=== PATIENT | female | born 1970 | race Caucasian/White ===

== ENCOUNTER 2019-10-25 14:00 | Outpatient (CLI) | payer OTHER, SELFPAY ==
--- NOTE | ~2019-10-25 | CT_ITS ---
EXAMINATION: CT abdomen pelvis w con EXAM DATE: 10/25/2019 14:49 INDICATION: Left lower quadrant abdominal pain. TECHNIQUE: Spiral CT of the abdomen and pelvis was performed following intravenous injection of 100 m L Omnipaque 350. Axial, coronal and sagittal images were reviewed. The dose-length product (DLP) fo r this examination was 477.59 mGy-cm. The exposure was tailored according to patient size (auto mA e xposure control), and iterative reconstruction (ASIR) was used as additional dose reduction technique . Comparison is made to prior examination from 10/19/2018. FINDINGS: The liver, spleen, adrenal glands and pancreas are unremarkable. Gallbladder is unremarkab le. No biliary obstruction. Portal and splenic veins are patent. Kidneys enhance symmetrically. T here is no hydronephrosis. The uterus is not identified and has likely been surgically resected. Th e ovaries are unremarkable. The bladder is unremarkable. There is no retroperitoneal or pelvic lymp hadenopathy. The appendix is normal. The stomach and small bowel are unremarkable. There is expected amount of c olonic stool. No free intraperitoneal gas. The heart is normal in size. There are no pericardial or pleural effusions. The lung bases are unremarkable. The bones are unremarkable. IMPRESSION: 1. Unremarkable CT abdomen pelvis exam. Reviewed, dictated and finalized at location A.
== END 2019-10-25 14:01 | disposition home or self-care (01) ==
PROVIDERS: PCP Family Medicine; Visit Provider Nurse Practitioner Family
DX: R10.9 Unspecified abdominal pain (principal)
CPT/HCPCS: 74177; Q9967

== ENCOUNTER → 2022-03-31 08:09 | Outpatient (CLI) | payer BC, OTHER, SELFPAY ==
--- NOTE | ~2022-03-31 | MR_ITS ---
EXAMINATION: MR lumbar spine wo con DATE: 03/31/2022 09:02 INDICATION: Lumbar disc protrusion. TECHNIQUE: Magnetic resonance imaging (MRI) of the lumbar spine was performed without intravenous con trast. Sequences included sagittal T2-weighted FSE, sagittal T2-weighted FS FSE, sagittal T1-weighted FSE, and axial T2-weighted FSE. COMPARISON: None FINDINGS: Bone alignment is normal. Vertebral body heights are normal. There is mildly decreased disc height at L3-L4 and moderately decreased disc height at L5-S1. The distal spinal cord signal intensi ty is normal. The conus medullaris is at L2. The following disc levels are specifically discussed: L1-L2: There is a central protrusion. There is mild bilateral facet joint osteoarthritis. There is no neural foraminal stenosis. There is mild central canal stenosis. L2-L3: The disc does not extend beyond the endplate margin. There is mild bilateral facet joint osteo arthritis. There is no neural foraminal stenosis. There is no central canal stenosis. L3-L4: The disc is bulging. There is mild bilateral facet joint osteoarthritis. There is mild left ne ural foraminal stenosis. There is mild central canal stenosis. L4-L5: The disc is bulging. There is moderate right and severe left facet joint osteoarthritis. There is mild bilateral neural foraminal stenosis. There is mild central canal stenosis. L5-S1: The disc is bulging and has an annular fissure. There is moderate right and mild left facet ajith int osteoarthritis. There is moderate bilateral neural foraminal stenosis. There is mild central harika l stenosis. IMPRESSION: 1. Moderate lumbar spondylosis. Reviewed, dictated and finalized at location A. RAMS ASSISTANT
== END ==
PROVIDERS: PCP Family Medicine; Visit Provider Chiropractor
DX: M51.26 Other intervertebral disc displacement, lumbar region (principal); M47.816 Spondylosis without myelopathy or radiculopathy, lumbar region
CPT/HCPCS: 72148

== ENCOUNTER → 2022-10-25 07:14 | Outpatient (CLI) | payer BC, OTHER, SELFPAY ==
--- NOTE | ~2022-10-25 | MMUS_ITS ---
EXAMINATION: MM diagnostic tammi BI w katt, US breast RT complete HISTORY: Right axillary lump for 3 to 4 months TECHNIQUE: ML, MLO and CC 3-D tomosynthesis images of both breasts were performed and synthetic 2-D i mages were generated. CAD analysis was submitted and interpreted. High resolution complete right funmilayo st ultrasound examination including all 4 quadrants and subareolar area and right axillary ultrasound examination were performed. COMPARISON: None BREAST PARENCHYMAL COMPOSITION: There are scattered areas of fibroglandular density. FINDINGS: MAMMOGRAPHIC FINDINGS: There is a circumscribed approximately 3.4 cm right axillary mass. No suspicious mass, architectural distortion, malignant calcification, skin thickening or retraction of either breast is noted otherwise. ULTRASOUND: There is a circumscribed 2.1 x 3.3 x 3.5 cm right axillary hypoechoic solid mass with prominent color flow signal/vascularity and central lucency suggesting necrosis, corresponding to the right axillary mass demonstrated mammographically. The mass is suspicious; ultrasound guided biopsy is recommended . A 0.8 x 1.5 x 1.4 cm benign appearing right axillary lymph node is noted. 8:00 8 cm from nipple: A circumscribed 2.8 x 1.7 x 4.6 mm relatively sonolucent lesion without internal controls specialist al vascularity or posterior shadowing is noted, benign in appearance. 9:00 8.5 cm from nipple: Circumscribed benign-appearing 1.9 x 3.4 x 4.3 mm hypoechoic lesion is noted . No suspicious sonographic mass of the right breast is evident. IMPRESSION: 1. Vascularity or centrally necrotic circumscribed hypoechoic solid right axillary 2.1 x 3.3 x 3.5 cm mass 2. Ultrasound-guided biopsy right axillary mass is recommended BI-RADS category 4, suspicious findings. Dr. Moura telephoned the report and ultrasound-guided biopsy recommendation of the right axillary mass on 10/25/2022 at 1022 hours to Business Management Professor Ann-Marie. Reviewed, dictated and finalized at location A. IMPRESSION: 1. Vascularity or centrally necrotic circumscribed hypoechoic solid right axill nida 2.1 x 3.3 x 3.5 cm mass 2. Ultrasound-guided biopsy right axillary mass is recommended BI-RADS category 4, suspicious findings. Dr. Moura telephoned the report and ultrasound-guided biopsy recommendation of t he right axillary mass on 10/25/2022 at 1022 hours to Business Management Professor June.
== END ==
PROVIDERS: PCP Family Medicine; Visit Provider Student in an Organized Health Care Education/Training Program
DX: N63.10 Unspecified lump in the right breast, unspecified quadrant (principal); R92.8 Other abnormal and inconclusive findings on diagnostic imaging of breast
CPT/HCPCS: 76641; 77062; 77066; G0279

== ENCOUNTER 2022-10-27 15:29 | Outpatient (CLI) | payer BC, OTHER, SELFPAY ==
[2022-10-27 16:10] LABS: Basophils Absolute Auto 0.1 K/mm3 (0.0-0.1); Basophils Percent Auto 1.3 % (0.2-1.2); Eosinophils Absolute Auto 0.2 K/mm3 (0-0.3); Eosinophils Percent Auto 2.5 % (0-4.4); Hematocrit 37.9 % (37.0-47.0); Hemoglobin 12.4 g/dL (12.0-15.0); Immature Granulocyte Absolute 0.02 K/mm3 (0.00-0.031); Immature Granulocyte Percent A 0.3 % (0-0.5); Lymphocytes Absolute Auto 2.17 K/mm3 (0.9-3.2); Lymphocytes Percent Auto 28.1 % (18.3-44.2); Mean Corpuscular HGB Conc 32.7 g/dl (32-36); Mean Corpuscular Hemoglobin 29.5 pg (26-34); Mean Corpuscular Volume 90.2 fl (80-100); Mean Platelet Volume 9.7 fl (7.4-10.4); Monocytes Absolute Auto 0.6 K/mm3 (0.1-0.6); Monocytes Percent Auto 7.5 % (2.6-8.5); Neutrophils Absolute Auto 4.7 K/mm3 (1.3-6.7); Neutrophils Percent Auto 60.3 % (45.5-73.1); Platelet Count Result 335 k/mm3 (150-375); White Blood Count 7.7 K/mm3 (4.5-10.0)
[2022-10-27 16:21] LABS: Alanine Aminotransferase 23 U/L (6-35); Albumin Level 4.1 g/dL (3.5-5.1); Alkaline Phosphatase 63 U/L (38-126); Anion Gap 4 mmol/L (8-16); Aspartate Amino Transferase 23 U/L (14-36); Bilirubin,Total 0.2 mg/dL (0.2-1.3); Blood Urea Nitrogen 13 mg/dL (7-17); Calcium 8.5 mg/dL (8.4-10.2); Carbon Dioxide 30 mmol/L (22-30); Chloride 101 mmol/L (98-107); Estimated Glomerular Filt Rate > 60; Glucose 85 mg/dL (65-110); Potassium 3.9 mmol/L (3.4-5.0); Sodium 135 mmol/L (137-145)
== END 2022-10-27 15:30 | disposition home or self-care (01) ==
LOC: ANHLAB 15:32
PROVIDERS: PCP Family Medicine; Visit Provider Physician Assistant Surgical
DX: R22.31 Localized swelling, mass and lump, right upper limb (principal)
CPT/HCPCS: 36415; 80053; 85025

== ENCOUNTER 2022-10-28 08:05 | Outpatient (CLI) | payer BC, OTHER, SELFPAY ==
--- NOTE | ~2022-10-28 | US_ITS ---
EXAMINATION: US biopsy lymph node DATE: 10/28/2022 09:26 INDICATION: Enlarged right axillary lymph node TECHNIQUE: The procedure including the risks and benefits was discussed with the patient. Risks discu ssed included bleeding and infection. The patient understood the risks and agreed to proceed. The sk in overlying the right axilla was prepped and draped in usual sterile fashion. Anesthetic was admini stered with 1% lidocaine subcutaneously. An 18 gauge core biopsy needle was then advanced into the a lymph node utilizing continuous ultrasound guidance. A core biopsy specimens obtained and placed in formalin. Additional passes were made with a 14-gauge core biopsy needle into the lymph node again wi th continuous ultrasound observation and additional 4 core biopsy specimens were obtained, 3 placed i n a PMI media and one in formalin. Following removal of the biopsy needle the entry site was cleaned and dressed. There were no immediate complications. FINDINGS: Ultrasound images demonstrate biopsy needles advanced through a 3.6 x 3.5 x 2.1 cm right ax illary lymph node. IMPRESSION: 1. Successful CT-guided biopsy of a 3.6 x 3.5 x 2.3 cm right axillary lymph node. Reviewed, dictated and finalized at location A. IMPRESSION: 1. Successful CT-guided biopsy of a 3.6 x 3.5 x 2.3 cm right axillary lymph nod e.
== END 2022-10-28 08:06 | disposition home or self-care (01) ==
PROVIDERS: PCP Family Medicine; Visit Provider Surgery
DX: R22.31 Localized swelling, mass and lump, right upper limb (principal)
CPT/HCPCS: 38505; 76942; 88108; 88184; 88305; 88342; 88360

== ENCOUNTER 2022-11-04 00:48 | Day surgery (SDC) | payer BC, OTHER, SELFPAY ==
[2022-11-02 12:01] VITALS: BMI 27.8
--- NOTE | 2022-11-02 12:08 | PC.NURSE ---
Report to the Outpatient Waiting Room, entrance under the green pavilion located off [facility], at time _0830_ on date _[id number]_. Planned Procedure Time: _1030_. Time changes happen often and if your time is changed the preop area will call you the afternoon before. - You and your visitor will be asked to self-screen and do not enter if you have any COVID symptoms. - A mask is optional within the hospital at this time. Patients may have clear liquids (water, carbonated beverages, clear teas, apple juice) until 3 hours prior to surgery with a maximum of 20 ounces. - No food from midnight until time of surgery Take the following medications with a SIP of water the morning of surgery: ____None DO NOT STOP ANY OF YOUR OTHER PRESCRIPTION MEDICATIONS PRIOR TO SURGERY ?EXCEPT THE FOLLOWING Medications to discontinue per physician None Date to take last dose Please no make-up, nail montserratian, hairspray, perfume, deodorant, or body powder the day of surgery. No jewelry (including any body piercings) or valuables the day of surgery, leave them at home. Please take a shower or bath the night before, or the morning of, surgery with an antibacterial soap. Wear comfortable, loose fitting clothing. - Jewelry must be removed prior to entering the operating room. Rings and piercings that are not removed may be cut off. - The hospital will not accept responsibility for valuables. - Please leave all valuables, including medications, at home the day of surgery. If you are going home after surgery, a licensed crew truck driver must drive you home. - NO public transportation without another adult if you receive anesthesia. - We recommend that an adult stay with you for 24 hours following discharge. - We also recommend that you do not drive, make important decision, drink alcoholic beverages, or take any drugs that were not prescribed by your health care provider for at least 24 hours after your discharge time. Follow any additional instructions given to you from your surgeon. If you or anyone in your household have experienced Covid symptoms in the past week, please notify your surgeon or the nurse liaison at the phone number below for possible testing. Telephone instructions given to __Patient___and asked if any additional questions and then verbalized understanding. Patient advised to call surgeon office or pre surgery nurse liaison [phone] if any additional questions.
[2022-11-04] VITALS (9 sets, daily range): BP systolic 118–129; BP diastolic 64–83; PULSE 51–86; RESP 12–14; TEMP 36.1–36.5; O2SAT 95–100
--- NOTE | 2022-11-04 09:57 | WPDANESEPPF ---
Anes - Initial Pre Proc Eval Procedure: Operation Date: 11/04/22 10:30 Proposed Procedures p Excisional Biopsy Right Axillary Lymph Node - Merly Mcguire MD Date/Time: 11/04/22 09:57 Surgeon: Merly Mcguire MD Pre Op Diagnosis: right axillary mass Patient Data Age: 52 Gender: F Height: 1.57 m Weight: 69 kg Allergies Allergy/AdvReac Type Severity Reaction Status Date / Time tetracycline Allergy Mild Fainting Verified 11/02/22 12:00 Home Medications Medication Instructions Recorded Confirmed Type No Home Medications 11/02/22 11/02/22 History Patient hx anesthesia problems: none Family hx anesthesia problems: none Results Review: All pre-operative results and documents have been reviewed as part of the pre-operative evaluation. [facility] Past Medical History Medical History (Updated 10/26/22 @ 14:11 by Julia Reyes PA-C) BMI greater than 30 Mass of right axilla Screening for breast cancer Surgical History Surgical History H/O: hysterectomy History of bladder repair surgery History of hip surgery Hx of breast reduction, elective Previous back surgery Family History Family History Father Heart disease Hypertension Thyroid cancer Cancer of kidney Skin cancer CHF (congestive heart failure) Mother COPD (chronic obstructive pulmonary disease) Sibling Cancer of kidney Social History Social History (Updated 10/26/22 @ 14:39 by Hannah Mccray [facility]) Smoking packs per day: 1 Smoking cigarettes per day: 20.0 Years smoked: 15 Smoking pack-years: 15.00 Smoking status: Former smoker Smoking end date: 11/02/06 Alcohol intake: current Drinks per week: 3 Substance use: never Lack of Transportation: No Lack of Food: Never True Current Housing: I Have Housing Concerned About Future Housing: No Difficulty Paying Gas/Electric Bills: No Difficulty Paying for Meds: No Currently Unemployed: No Education: Master's Degree or Higher Difficulty w/ Childcare or Family Care: No Living arrangements: with family Occupation/Education: occupation Gender identity (if verbalized by the patient): Female Sexual Orientation (if Verbalized by the Patient): Straight or Heterosexual Spiritual care concerns: No Anes - Eval Final PreProcedure Day of Procedure 11/04/22 09:57 Patient weight: normal Heart: regular rate and rhythm Lungs: clear to auscultation Airway: Mallampati scale class II Neurological: alert and oriented Last oral intake: >/= 8 hours ASA classification: II Emergent: no Anesthetic plan: proceed Anesthesia type and monitoring: general GIVS and LMA and standard monitoring Results Review: All pre-operative results and documents have been reviewed as part of the pre-operative evaluation. Informed Consent: The patient's anesthetic plan and its attendant risks and benefits were discussed with the patient/family/POA. Questions were solicited and answers provided to the satisfaction of the patient/family/POA.
--- NOTE | 2022-11-04 10:04 | WPDHPUPDATE1 ---
History and Physical Update Update Date/Time: 11/04/22 10:04 History and Physical has been reviewed, including an updated exam of the patient. There are NO changes in the patient's condition. Risks, benefits, and alternatives have been discussed and questions answered. Patient agrees to proceed with procedure.
[2022-11-04] MEDS: LACTATED RINGERS 1,000 ML 30 ML IV CONT ×2 (10:15→12:26)
[2022-11-04] MEDS: ACETAMINOPHEN 500 MG TABLET 1000 MG PO (10:15)
[2022-11-04] MEDS: SCOPOLAMINE 1.5 MG PATCH TRANSDERM (10:15)
[2022-11-04] MEDS: ceFAZolin 2 GM/D5W 50 ML 2 GM/50 ML BAG IVPB (10:51)
--- NOTE | 2022-11-04 12:04 | SUR.OPER ---
1200: Specimen excised. Right Axillary Mass Specimen marked per Dr. Mcguire. Sent fresh to lab per Kenia, PCT. 1207: Specimen received in Lab by
[2022-11-04] MEDS: BUPIVACAINE/EPINEPHRINE 0.25% 10 ML VIAL 30 ML INFILTRATE (12:09)
--- NOTE | 2022-11-04 12:13 | P.OP_ITS ---
Procedure Note - Detailed Date of Procedure 11/04/22 Pre-op Diagnosis right axillary mass Post-op Diagnosis Same Procedure Performed Excisional biopsy of right axillary mass Surgeon Merly Mcguire MD [employer] Julia Reyes PA-C Anesthesia General Indications 52-year-old female who presented for evaluation of right axillary mass. Patient had a unremarkable breast mammogram and ultrasound done but it did show a large axillary mass. She had a ultrasound-guided core needle biopsy of this mass that showed atypical vascular lesion, recommended for an excisional biopsy for further diagnosis. Risks of the procedure were discussed with the patient which included but not limited to risk of bleeding, infection, possible need for additional procedures in the future, damage to nearby structures including the long thoracic nerve and the thoracodorsal nerve, positive margins, recurrence, pain, wound healing issues as well as risk of anesthesia. All questions were answered patient agreed to proceed. Description of Procedure Patient was identified in the preoperative holding area brought to the operating room suite. She was laid supine in the operating table and sequential compression devices were applied. The right axillary and chest area were prepped and draped in a sterile fashion. An incision was made overlying the area of the palpable mass and dissection was carried down through the subcutaneous tissue with Bovie electrocautery. The clavipectoral fascia was encounter and opened. The mass was located through palpation incompletely excised from the surrounding tissue in the axilla using LigaSure device. The ma ss was not attached to the underlying muscle and the long thoracic nerve or thoracodorsal nerve were never visualized as there was a layer of adipose tissue between the mass and the chest wall. The mass was oriented using surgical paint according to the manufacture instruction and sent to pathology as a fresh specimen. The cavity was irrigated hemostasis was assured. The clavipectoral fascia was approximated using running 3-0 Vicryl, the deep dermal layer was closed with interrupted 3-0 Vicryl and the skin was then closed with 4-0 Monocryl in a subcuticular fashion. Dermabond was applied followed by sterile dressing and a compression bra. Patient was awoken from anesthesia taken to the recovery area in stable condition. All needles, instruments, and sponge counts were correct as reported by their operating room staff. Patient tolerated the procedure well with no immediate complications. Julia Reyes PA-C, was required for positioning and retraction throughout the case. Estimated Blood Loss 5 Drains No Pathology Yes Complications No immediate complications Condition Stable Disposition PACU [facility] Billing Surgery - Charge Forward: Surgery Billing
[2022-11-04] MEDS: fentaNYL CITRATE INJ (*CRX) 100 MCG/2 ML VIAL 25 MCG IV PUSH ×4 (12:59→13:10)
[2022-11-04] MEDS: ONDANSETRON INJ 4 MG/2 ML VIAL IV PUSH (13:49)
== END 2022-11-04 14:29 | disposition home or self-care (01) ==
PROVIDERS: PCP Family Medicine; Visit Provider Surgery
PROC: (CPT 24071; principal; 2022-11-04 10:30)
DX: R22.31 Localized swelling, mass and lump, right upper limb (principal); Z87.891 Personal history of nicotine dependence
CPT/HCPCS: 24071; 88304; A9270; J0690; J1100; J2250; J2405; J2704; J3010; J7120

== ENCOUNTER 2023-05-02 07:59 | Outpatient (CLI) | payer BC, SELFPAY ==
--- NOTE | 2023-05-02 08:20 | ECG_ITS ---
Measurements Intervals [place] Rate: 55 P: 17 [place]: 169 QRS: 42 QRSD: 101 T: 48 QT: 418 QTc: 400 Interpretive Statements SINUS BRADYCARDIA BORDERLINE ECG NO PREVIOUS ECG AVAILABLE FOR COMPARISON Electronically Signed On 05-02-2023 16:48:22 [employer] by Silvestre Zuleta M.D.
[2023-05-02 08:21] LABS: Hematocrit 39.9 % (37.0-47.0); Hemoglobin 13.2 g/dL (12.0-15.0); Mean Corpuscular HGB Conc 33.1 g/dl (32-36); Mean Corpuscular Hemoglobin 29.3 pg (26-34); Mean Corpuscular Volume 88.5 fl (80-100); Mean Platelet Volume 9.3 fl (7.4-10.4); Platelet Count Result 299 k/mm3 (150-375); Red Blood Count 4.51 M/mm3 (4.2-5.4); Red Cell Distribution Width 12.5 % (11.5-14.5); White Blood Count 6.6 K/mm3 (4.5-10.0)
[2023-05-02 08:30] LABS: Alanine Aminotransferase 17 U/L (6-35); Albumin Level 4.2 g/dL (3.5-5.1); Alkaline Phosphatase 60 U/L (38-126); Anion Gap 4 mmol/L (8-16); Aspartate Amino Transferase 22 U/L (14-36); Bilirubin,Total 0.5 mg/dL (0.2-1.3); Blood Urea Nitrogen 13 mg/dL (7-17); Calcium 9.1 mg/dL (8.4-10.2); Carbon Dioxide 30 mmol/L (22-30); Chloride 102 mmol/L (98-107); Estimated Glomerular Filt Rate > 60; Glucose 96 mg/dL (65-110); Potassium 4.1 mmol/L (3.4-5.0); Sodium 136 mmol/L (137-145)
== END 2023-05-02 08:00 | disposition home or self-care (01) ==
PROVIDERS: PCP Family Medicine; Visit Provider Orthopaedic Surgery
DX: Z01.818 Encounter for other preprocedural examination (principal)
CPT/HCPCS: 36415; 80053; 85027; 93005

== ENCOUNTER 2023-11-17 11:35 | Outpatient (CLI) | payer BC, SELFPAY ==
[2023-11-17 12:23] LABS: Cholesterol 181 mg/dL (0-200); HDL Direct 71 mg/dL; Triglycerides 57 mg/dL (<150)
[2023-11-17 12:33] LABS: LDL Cholesterol Direct 101 mg/dL
[2023-11-17 12:48] LABS: Thyroid Stimulating Hormone 0.637 uIU/mL (0.465-4.680)
== END 2023-11-17 11:36 | disposition home or self-care (01) ==
LOC: ANHLAB 11:36
PROVIDERS: PCP Family Medicine; Visit Provider Nurse Practitioner Family
DX: Z13.29 Encounter for screening for other suspected endocrine disorder (principal); R63.5 Abnormal weight gain; Z13.220 Encounter for screening for lipoid disorders
CPT/HCPCS: 36415; 80061; 84443

== ENCOUNTER 2023-12-15 11:44 | Outpatient (CLI) | payer BC, SELFPAY ==
--- NOTE | ~2023-12-15 | MM_ITS ---
EXAMINATION: MM screening [facility] BI w katt HISTORY: Screening mammogram TECHNIQUE: Craniocaudal and mediolateral oblique 3-D tomosynthesis images were obtained and synthetic 2-D images were generated. CAD analysis was submitted and interpreted. COMPARISON: 10/25/2022, 04/09/2020, 09/27/2018 BREAST PARENCHYMAL COMPOSITION:Not Dense. There are scattered areas of fibroglandular density. FINDINGS: No suspicious mass, calcification, or architectural distortion are identified in either johanna ast to suggest malignancy. There has been no suspicious interval change. IMPRESSION: No mammographic evidence of malignancy. Recommend routine screening mammography in one year. BI-RADS Category 1: Negative Reviewed, dictated and finalized at location .
== END 2023-12-15 11:45 | disposition home or self-care (01) ==
LOC: CHSIMG 11:46
PROVIDERS: PCP Family Medicine; Visit Provider Student in an Organized Health Care Education/Training Program
DX: Z12.31 Encounter for screening mammogram for malignant neoplasm of breast (principal)
CPT/HCPCS: 77063; 77067

== ENCOUNTER 2024-01-19 00:44 | Day surgery (SDC) | payer BC, SELFPAY ==
[2024-01-06 14:53] VITALS: BMI 27.3
[2024-01-19] MEDS: LACTATED RINGERS 1,000 ML 150 ML IV CONT (06:55)
[2024-01-19 06:56] VITALS: BP 110/73; PULSE 70; RESP 16; TEMP 36.4; O2SAT 100
--- NOTE | 2024-01-19 07:12 | P.PNAN_ITS ---
Anes - Initial Pre Proc Eval Procedure: Operation Date: 01/19/24 08:00 Proposed Procedures p Screening Colonoscopy - Anthony Garsia DO Date/Time: 01/19/24 07:12 Surgeon: Anthony Garsia DO Pre Op Diagnosis: Neoplasm screening Patient Data Age: 54 Gender: F Height: 1.57 m Weight: 68 kg Last Vital Signs Temp 36.4 C 01/19/24 06:56 Pulse 70 01/19/24 06:56 Resp 16 01/19/24 06:56 BP 110/73 01/19/24 06:56 Pulse Ox 100 01/19/24 06:56 O2 Del Method Room Air 01/19/24 06:56 Allergies Allergy/AdvReac Type Severity Reaction Status Date / Time tetracycline Allergy Mild Fainting Verified 01/19/24 06:58 Home Medications Medication Instructions Recorded Confirmed Type estradiol 0.01% (0.1 mg/gram) 1 g vaginal 3XW #42.5 grams 11/02/23 01/19/24 Rx vaginal cream omeprazole 20 mg capsule,delayed 20 mg PO DAILY #90 caps 11/17/23 01/19/24 Rx release ibuprofen 800 mg tablet 800 mg PO Q8H PRN Pain 01/06/24 01/19/24 History semaglutide (weight loss) 0.25 0.25 mg subcut WEEKLY 01/06/24 01/19/24 History mg/0.5 mL subcutaneous pen injector (Wegovy) temazepam 7.5 mg capsule (Restoril) 7.5 mg PO QHS PRN sleep #30 caps 01/10/24 01/19/24 Rx Patient hx anesthesia problems: none Family hx anesthesia problems: none Results Review: All pre-operative results and documents have been reviewed as part of the pre- operative evaluation. [facility] Past Medical History Medical History Abdominal pain BMI greater than 30 Bronchitis Gluteal tendinitis of right buttock LLQ pain Mass of right axilla Midline low back pain with left-sided sciatica Screening for breast cancer Screening mammogram for breast cancer Surgical History Surgical History H/O: hysterectomy History of bladder repair surgery History of hip surgery Hx of breast reduction, elective Previous back surgery S/P tendon repair Family History Family History Father Heart disease Hypertension Thyroid cancer Cancer of kidney Skin cancer CHF (congestive heart failure) Mother COPD (chronic obstructive pulmonary disease) Sibling Cancer of kidney Social History Social History Smoking packs per day: 1 Smoking cigarettes per day: 20.0 Years smoked: 15 Smoking pack-years: 15.00 Smoking status: Former smoker Smoking end date: 11/02/06 Alcohol intake: current Drinks per week: 4 Substance use: never Lack of Transportation: No Lack of Food: Never True Current Housing: I Have Housing Concerned About Future Housing: No Difficulty Paying Gas/Electric Bills: No Difficulty Paying for Meds: No Currently Unemployed: No Education: Master's Degree or Higher Difficulty w/ Childcare or Family Care: No Living arrangements: with family Occupation/Education: occupation Gender identity (if verbalized by the patient): Female Sexual Orientation (if Verbalized by the Patient): Straight or Heterosexual Spiritual care concerns: No Anes - Eval Final PreProcedure Day of Procedure 01/19/24 07:12 Patient weight: overweight Heart: regular rate and rhythm Lungs: clear to auscultation Airway: Mallampati scale class II Neurological: alert and oriented Last oral intake: >/= 8 hours ASA classification: II Emergent: no Anesthetic plan: proceed Anesthesia type and monitoring: general GIVS and standard monitoring Results Review: All pre-operative results and documents have been reviewed as part of the pre- operative evaluation. Informed Consent: The patient's anesthetic plan and its attendant risks and benefits were discussed with the patient/family/POA. Questions were solicited and answers provided to the satisfaction of the patient/family/POA.
--- NOTE | 2024-01-19 07:26 | P.HP_ITS ---
H&P: HPI History of Present Illness Date/Time: 01/19/24 07:26 Chief Complaint: Screening for colorectal cancer Narrative: this is a 54-year-old woman who presents for colonoscopy. Her last colonoscopy was greater than 10 years ago. She reports IBS symptoms with mostly constipation and some occasional abdominal pain and cramping. She denies any diarrhea. She has grandparents that have had colon cancer but denies any first- degree relatives. She denies any hematochezia or melena. Review of Systems Review of Systems: All systems reviewed & are unremarkable except as noted in HPI and below Constitutional: Constitutional: Denies chills, Denies fever(s), Denies headach e(s) and Denies weight loss Eyes: Eyes: Denies change in vision ENT: Denies dizziness, Denies headache(s), Denies neck mass and Denies throat swelling Cardiovascular: Cardiovascular: Denies chest pain, Denies lightheadedness and Denies dyspnea Respiratory: Respiratory: Denies cough, Denies dyspnea and Denies wheezing Gastrointestinal: Gastrointestinal: Denies abdominal pain, Denies change in bowel habits, Denies nausea and Denies vomiting Genitourinary: Genitourinary: Denies hematuria and Denies dysuria Musculoskeletal: Musculoskeletal: Reports as per HPI Integumentary/Breasts: Skin/Breast: Reports as per HPI Neurologic: Denies dizziness and Denies headache(s) Allergic/Immunologic: Allergic/Immunologic: Denies throat swelling and Denies wheezing [facility] Past Medical History Medical History Abdominal pain BMI greater than 30 Bronchitis Gluteal tendinitis of right buttock LLQ pain Mass of right axilla Midline low back pain with left-sided sciatica Screening for breast cancer Screening mammogram for breast cancer Surgical History Surgical History H/O: hysterectomy History of bladder repair surgery History of hip surgery Hx of breast reduction, elective Previous back surgery S/P tendon repair Family History Family History Father Heart disease Hypertension Thyroid cancer Cancer of kidney Skin cancer CHF (congestive heart failure) Mother COPD (chronic obstructive pulmonary disease) Sibling Cancer of kidney Social History Social History Smoking packs per day: 1 Smoking cigarettes per day: 20.0 Years smoked: 15 Smoking pack-years: 15.00 Smoking status: Former smoker Smoking end date: 11/02/06 Alcohol intake: current Drinks per week: 4 Substance use: never Lack of Transportation: No Lack of Food: Never True Current Housing: I Have Housing Concerned About Future Housing: No Difficulty Paying Gas/Electric Bills: No Difficulty Paying for Meds: No Currently Unemployed: No Education: Master's Degree or Higher Difficulty w/ Childcare or Family Care: No Living arrangements: with family Occupation/Education: occupation Gender identity (if verbalized by the patient): Female Sexual Orientation (if Verbalized by the Patient): Straight or Heterosexual Spiritual care concerns: No Meds Home Medications and Allergies Home Medications Medication Instructions Recorded Confirmed Type estradiol 0.01% (0.1 mg/gram) 1 g vaginal 3XW #42.5 grams 11/02/23 01/19/24 Rx vaginal cream omeprazole 20 mg capsule,delayed 20 mg PO DAILY #90 caps 11/17/23 01/19/24 Rx release ibuprofen 800 mg tablet 800 mg PO Q8H PRN Pain 01/06/24 01/19/24 History semaglutide (weight loss) 0.25 0.25 mg subcut WEEKLY 01/06/24 01/19/24 History mg/0.5 mL subcutaneous pen injector (Wegovy) temazepam 7.5 mg capsule (Restoril) 7.5 mg PO QHS PRN sleep #30 caps 01/10/24 01/19/24 Rx Allergies Allergy/AdvReac Type Severity Reaction Status Date / Time tetracycline Allergy Mild Fainting Verified 01/19/24 06:58 Vital Signs Vital Signs - 24 hr 01/19/24 06:56 Temperature 97.6 F Pulse Rate 70 Respiratory Rate 16 Blood Pressure 110/73 Pulse Oximetry 100 Oxygen Delivery Room Air Exam Const: General: no acute distress and alert Orientation/consciousness: patient oriented x3 HENMT: Head: normocephalic and atraumatic Ears: hearing grossly normal bilaterally Face/Nose/Sinus: Normal nares present Mouth: Yes Normal oral and palatal mucosa present Eyes: Periorbital: periorbital findings normal Sclera: sclerae normal EOM: EOMs intact bilaterally Neck: Neck: normal visual inspection, no lymphadenopathy and trachea midline Chest: Chest palpation & inspection: normal inspection of the chest Resp: Effort & Inspection: normal respiratory effort Auscultation: clear to auscultation bilaterally Cardio: Jugular venous distension: no JVD Rate: regular rate Rhythm: regular rhythm Heart sounds: S1 normal heart sound present and S2 normal heart sound present Peripheral pulses: Peripheral pulses 2+ throughout GI: Inspection: normal to inspection GI Palp: Yes Soft to palpation, No Tenderness to palpation present (GI), No Guarding due to palpation present (GI) and No Rebound tenderness present Percussion: Yes normal to percussion Auscultation: normal bowel sounds : General: Yes no CVA tenderness Back/Spine/Pelvis: Back: no CVA tenderness Neuro: General: patient oriented x3, no focal motor deficits and CN's II-XI intact bilaterally Cognition (Neuro): normal cognition Speech: normal speech Motor exam (neuro): 5/5 motor strength present throughout Extrem: General: capillary refill normal and no clubbing, cyanosis or edema Assessment and Plan Assessment and plan (1) Screening for colorectal cancer: Code(s): Z12.11 - Encounter for screening for malignant neoplasm of colon; Z12.12 - Encounter for screening for malignant neoplasm of rectum Status: Acute Assessment and Plan: I have recommended colonoscopy. I have discussed the procedure, risks, benefits, and alternatives. Questions were answered. Patient is agreeable to proceed.
[2024-01-19 08:21] VITALS: BP 98/64; PULSE 60; RESP 15; O2SAT 99
[2024-01-19 08:31] VITALS: BP 98/65; PULSE 57; RESP 24; O2SAT 100
[2024-01-19 08:41] VITALS: BP 108/68; PULSE 58; RESP 24; O2SAT 100
== END 2024-01-19 08:52 | disposition home or self-care (01) ==
PROVIDERS: PCP Family Medicine; Visit Provider Surgery
PROC: 0DJD8ZZ Inspection of Lower Intestinal Tract, Via Natural or Artificial Opening Endoscopic (ICD-10-PCS; CPT 45378; principal; 2024-01-19 08:00)
DX: Z12.11 Encounter for screening for malignant neoplasm of colon (principal); K64.8 Other hemorrhoids; K57.30 Diverticulosis of large intestine without perforation or abscess without bleeding; Z79.1 Long term (current) use of non-steroidal anti-inflammatories (NSAID); Z79.85 Long-term (current) use of injectable non-insulin antidiabetic drugs; Z98.890 Other specified postprocedural states; Z98.1 Arthrodesis status; Z87.891 Personal history of nicotine dependence; Z80.8 Family history of malignant neoplasm of other organs or systems; Z80.51 Family history of malignant neoplasm of kidney; Z84.0 Family history of diseases of the skin and subcutaneous tissue; Z82.49 Family history of ischemic heart disease and other diseases of the circulatory system
CPT/HCPCS: 45378; J2003; J2704; J7120

== ENCOUNTER 2024-02-16 07:29 | Outpatient (CLI) | payer BC, SELFPAY ==
--- NOTE | ~2024-02-16 | XR_ITS ---
EXAMINATION: XR hand RT 2V DATE: 02/16/2024 07:53 INDICATION: Pain in unspecified fingers. TECHNIQUE: 2 views of right hand were obtained. COMPARISON: None. FINDINGS: Alignment is normal. No fracture. There is mild osteoarthrosis of first carpometacarpal margareth nt, first metacarpophalangeal joint, first interphalangeal joint, and second, third, and fifth distal interphalangeal joints. IMPRESSION: 1. Mild polyarticular osteoarthritis. Reviewed, dictated and finalized at location A.
== END 2024-02-16 07:30 | disposition home or self-care (01) ==
PROVIDERS: PCP Nurse Practitioner Adult Health; Visit Provider Nurse Practitioner Adult Health
DX: M19.041 Primary osteoarthritis, right hand (principal)
CPT/HCPCS: 73120

== ENCOUNTER 2024-12-28 10:22 | Outpatient (CLI) | payer BC, SELFPAY ==
--- NOTE | ~2024-12-28 | MM_ITS ---
EXAMINATION: MM screening [facility] BI w katt HISTORY: Screening TECHNIQUE: Craniocaudal and mediolateral oblique 3-D tomosynthesis images were obtained and synthetic 2-D images were generated. CAD analysis was submitted and interpreted. COMPARISON: Comparison to multiple prior studies sequentially, with oldest reviewed study dated 09/27/2018. BREAST PARENCHYMAL COMPOSITION: Not dense: There are scattered areas of fibroglandular density. FINDINGS: There is no evidence of suspicious mass, calcification, or architectural distortion to suggest malignancy in either breast. There has been no suspicious interval change. IMPRESSION: 1. No mammographic evidence of malignancy. 2. Recommend routine screening mammography in one year. BI-RADS Category 1: Negative Reviewed, dictated and finalized at location B.
--- OUTSIDE RECORDS SUMMARY | 2024-12-28 10:32 | XMS_ITS | Clinical Summary ---
Author Organization [facility] Address [address] [place] [address] Care Team Providers Care Director Of Recruiting Name Role Phone Unavailable Primary Care Provider Unavailabl e Source Comments [facility],non-owned Affiliates and Associated Physician Practices is amultiple site organization consisting of ambulatory clinics and hospital sitesin [place], [place], [place] and [place]. This disclosure is being madepursuant to the Care Everywhere program and may not contain all information available regarding this patient. Last updated 17.[facility] [employer] Social History Tobacco Use Types Packs/Day Years Used Date Smoking Tobacco: Never Assessed Comments Unknown Sex and Gender Information Value Date Recorded Sex Assigned at Not on file Legal Sex Female 5:30 AM OB/GYN Gender Identity Not on file Sexual Orientation Not on file Plan of Treatment Health Maintenance Due Date Last Done Comments COLOGUARD (AGES 45-75) - COL ON CA SCREENING 1969 COLON MONITORING 1969 COLONOSCOPY - COLON CA SCREENING 1969 CT COLONOGRAPHY - COLON CA SCREENING 1969 Colorectal Cancer Screening 1969 FIT - COLON CA SCREENING 1969 FLEX SIG - COLON CA SCREENING 1969 LIPID TESTING 1969 MAMMOGRAM 1969 HIV SCREENING 01/19/1984 HEPATITIS C SCREENING 01/14/1987 DTAP/TDAP/TD VACCINES (1 - Tdap) 01/19/1988 HEPATITIS B VACCINE (1 of 3 - 19+ 3-dose series) 01/19/1988 PAP SMEAR 1990 PNEUMOCOCCAL VACCINE 50+ (1 of 1 - PCV) 2019 ZOSTER VACCINE (1 of 2) 2019 DEPRESSION SCREENING 03/28/2024 COVID-19 VACCINE (1 - 2023-2 5 season) 2024 INFLUENZA VACCINE (#1) 2024 HIB VACCINE Aged Out No longer eligi ble based on patient's age to complete this topic HPV VACCINE Aged Out No longer eligi ble based on patient's age to complete this topic MENINGOCOCCAL (Group B) VACC INE SHARED DECISION-MAKING Aged Out No longer eligibl e based on patient's age to complete this topic MENINGOCOCCAL GROUPS A/C/Y/W VACCINE Aged Out No longer eligible b ased on patient's age to complete this topic Insurance [facility]
--- OUTSIDE RECORDS SUMMARY | 2024-12-28 10:32 | XMS_ITS | Encounter Summary ---
Author Organization [facility] Address [address] [place] [address] Care Team Providers Care Arborist Climber Name Role Phone Unavailable Primary Care Provider Unavailabl e Encounter Details Date Type Department Care Team (Late st Contact Info) Description 11/05/2022 Lab Requisition [facility] - Pathology Lab [address] [place] [address] Chao Fernández MD [address] [place] [address] Illness, unspecified Social History Tobacco Use Types Packs/Day Years Used Date Smoking Tobacco: Never Assessed Comments Unknown Sex and Gender Information Value Date Recorded Sex Assigned at Not on file 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 Gender Identity Not on file Sexual Orientation Not on file documented as of this encounter Plan of Treatment Not on file documented as of this encounter Procedures Procedure Name Priority Date/Time Associated Diagnosis Comments PATHOLOGY TISSUE Routine 11/04/2022 11:5 7 AM CDT Illness, unspecified documented in this encounter Results * PATHOLOGY TISSUE (11/04/2022 11:57 AM CDT) Case Report Surgical Pathology Report Case: [id number] Authorizing Provider: Chao Fernández MD Collected: 11/04/2022 11:57 AM Ordering Location: [facility] Care Pathology Lab Received: 11/05/2022 04:14 PM Pathologist: Liliana Bergman MD Specimen: Soft Tissue Mass, Right axillary mass 11/08/2022 8:01 AM CDT [facility] PATH[facility] Final Diagnosis Soft tissue mass, right axilla, excision ([id number], 11/04/22): - Vascular transformation of lymph node sinuses, see comment 11/08/2022 8:01 AM [facility] at 0801 CDT Microscopic Description and Comment Sections demonstrate a well circumscribed proliferation of blood-filled, anastomosing vascular channels in a sclerotic background. The endothelial lining shows no cytologic atypia, multilayering or mitotic activity. There is a complete capsule and thin rim of lymph node visible in some tissue sections. The rim of normal lymph node is best seen in blocks A7 and A8. These findings are consistent with vascular transformation of lymph node sinuses and is a benign finding. 11/08/2022 8:01 AM [facility] Clinical History The patient is a 52 year old woman with a right axillary mass. 11/08/2022 8:01 AM [facility] Materials Received Received are 10 slide(s) labeled [id number] along with a copy of the outside pathology report. [place] [address]. All original materials are returned to the referring institution, along with a copy of our final report. 11/08/2022 8:01 AM [facility] Pathologist Location at [facility] 11/08/2022 8:01 AM [facility] Disclaimer The performance characteristics of all immunohistochemical and indirect immunofluorescence stains (if any) cited in this report were determined by the Histopathology Laboratory of [facility]. Some of these tests were developed by our own laboratory and have not been cleared or approved by the US Food and Drug Administration. The FDA does not require this test to go through premarket FDA review. These tests are used for clinical purposes. They should not be regarded as investigational or for research. This laboratory is certified under the Clinical Laboratory Improvement Amendments (CLIA) as qualified to perform high complexity clinical laboratory testing. This case has been personally reviewed and interpreted by the attending (teaching) pathologist. 11/08/2022 8:01 AM [facility] Embedded Images 11/08/2022 8:01 AM [facility] Pathology/Cytolo gy SOFT TISSUE MASS / Unknown 11/04/2022 11:57 AM CDT 11/05/2022 4:14 PM CDT us Chao Fernández MD LAB - PATHOLOGY/CYTOLOGY OR DERABLES Final Result [facility] PATHOLOGY LAB [address] [phone] documented in this encounter Visit Diagnoses Diagnosis Illness, unspecified documented in this encounter
--- OUTSIDE RECORDS SUMMARY | 2024-12-28 10:32 | XMS_ITS | Patient Health Record ---
Author Organization [facility] Address [address] [place], [place] [id number] Care Team Providers Care Assembler Erector Name Role Phone RAMON Reyes Unavailable [phone] Jaya Gibson Unavailable Unavailable Reason For Referral No Information Plan Of Treatment No Information Insurance Providers Payer Name Payer Address Payer Phone Subscriber Number Group Number Insured Name Patient Relationship to Insured Coverage Start Date Coverage End Date [facility] ATTN CLAIMS [address] [place] [address] [id number] COLIN SNEED Self - patient is the insured
--- OUTSIDE RECORDS SUMMARY | 2024-12-28 10:32 | XMS_ITS | Clinical Summary ---
Author Organization [facility] Address [address] [place] [address] Care Team Providers Care Plant Guide Name Role Phone Jaya Gibson MD Primary Care Provider + [phone] Allergies Active Allergy Reactions Criticality Noted Date Comments Tetracycline Other (See comments) Low Reaction: Other Medications diazePAM (VALIUM) 5 mg tablet Take one tablet every 8 hours for 2 days after surgery, then take one tablet every 8 hours as needed for muscle spasms. 8 Active HYDROcodone-carlton taminophen (NORCO) 5-325 mg per tabletIndicatio ns:Pain TAKE 1 TO 2 TABLETS EVERY 4 TO 6 HOURS NEEDED FOR PAIN. 8 Active ondansetron (ZOFRAN) 4 mg tablet Take 1 tablet orally every 6 hours as needed for nasuea 8 Active scopolamine 1 mg over 3 days patch [address] on the skin. 8 Active senna-docusate (PERICOLACE) 8.6-50 mg Take 1 tablet twice a day for constipation while on narcotics 8 Active meloxicam (MOBIC) 7.5 mg tablet Take 1 tablet (7.5 mg total) by mouth 2 (two) times a day. 30 tablet 8 Active Active Problems Problem Noted Date Diagnosed Date Tear of acetabular labrum 02/02/2017 Family History Medical History Relation Name Comments Kidney disease Brother Family histor y of kidney disease - (Added by TW Conv) Arthritis Father Family history of arthritis - (Added by TW Conv) Cancer Father Family history of malignant neoplasm - (Added by TW Conv) Heart disease Father Family history of cardiac disorder - (Added by TW Conv) Kidney disease Father Family histor y of kidney disease - (Added by TW Conv) Cancer Mother Family history of malignant neoplasm - (Added by TW Conv) Lung disease Mother Lung trouble - (Added by TW Conv) Heart disease Other 1 Family history of cardiac disorder - (Added by TW Conv) Scoliosis Other 2 Family history of scoliosis - (Added by TW Conv) Arthritis Other 3 Family history of arthritis - (Added by TW Conv) Cancer Other 4 Family history of malignant neoplasm - (Added by TW Conv) Kidney disease Other 5 Family histor y of kidney disease - (Added by TW Conv) Lung disease Other 6 Lung trouble - (Added by TW Conv) Scoliosis Son Family history of scoliosis - (Added by TW Conv) Relation Name Status Comments Brother Father Mother Other 1 Other 2 Other 3 Other 4 Other 5 Other 6 Son Social History Tobacco Use Types Packs/Day Years Used Date Smoking Tobacco: Former Personal Safety Answer Date Recorded Getting School Help Needed Not on file 03/27 Comments Unknown Sex and Gender Information Value Date Recorded Sex Assigned at Not on file Legal Sex Female 10:46 AM CDT Gender Identity Not on file Sexual Orientation Not on file Obstetrics History Last Filed Vital Signs Vital Sign Reading Time Taken Comments Blood Pressure 122/82 08/06/2016 8:47 AM CDT Pulse 52 08/06/2016 8:47 AM CDT Temperature 36.6 C (97.8 F) 08/06/2016 8:47 AM CDT Respiratory Rate - - Oxygen Saturation 99% 08/06/2016 8:47 AM CDT Inhaled Oxygen Concentration - - Weight 76.7 kg (169 lb) 12/20/2017 9:03 AM CDT Height 157.5 cm (5' 2) 12/20/2017 9:03 AM CDT Body Mass Index 30.91 12/20/2017 9:03 AM CDT Plan of Treatment Health Maintenance Due Date Last Done Comments Breast Cancer Screening-Mammogram 1969 Cervical Cancer Screening 1969 Colon Cancer Screening-Colonoscopy 1969 Depression Screening 1969 Hepatitis C Screening 1969 DTaP/Tdap/Td Vaccine (1 - Tdap) 01/19/1980 Hepatitis B Screening 1987 Regular Well Visit/Exam 18-64 1987 Zoster Vaccine (1 of 2) 2019 Covid-19 Vaccine (3 2024-2 6 season) 2024 06/21/2020, 05/24/2020 Influenza Vaccine (#1) 2024 Pneumococcal vaccine <65 Aged Out No longer eligible based on patient's age to complete this topic Insurance [employer] [facility] OPTIONS PPO [employer] [facility] Care Teams Plant Guide Relationship Specialty Start Date End Date Jaya Gibson MD PCP - General 01/21/17
--- OUTSIDE RECORDS SUMMARY | 2024-12-28 10:32 | XMS_ITS | Encounter Summary ---
Author Organization [facility] Address [address] [place] [address] Care Team Providers Care Edger Saw Operator Name Role Phone Unavailable Primary Care Provider Unavailabl e Encounter Details Date Type Department Care Team (Late st Contact Info) Description 10/29/2022 Lab Requisition [facility] - Pathology Lab [address] [place] [address] Ramirez Francis MD [address] [address] Illness, unspecified Social History Tobacco Use Types Packs/Day Years Used Date Smoking Tobacco: Never Assessed Comments Unknown Sex and Gender Information Value Date Recorded Sex Assigned at Not on file 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 Gender Identity Not on file Sexual Orientation Not on file documented as of this encounter Plan of Treatment Not on file documented as of this encounter Procedures Procedure Name Priority Date/Time Associated Diagnosis Comments PATHOLOGY TISSUE Routine 10/28/2022 9:10 AM CDT Illness, unspecified documented in this encounter Results * PATHOLOGY TISSUE (10/28/2022 9:10 AM CDT) Case Report Surgical Pathology Report Case: [id number] Authorizing Provider: Ramirez Francis MD Collected: 10/28/2022 09:10 AM Ordering Location: [facility] Care Pathology Lab Received: 10/29/2022 02:45 PM Pathologist: Liliana Bergman MD Specimen: Lymph Node Biopsy, right axilla 11/01/2022 11:17 AM CDT [facility] PATH[facility] Final Diagnosis Soft tissue, right axilla, core biopsy (OSC: [id number]; 10/28/2022): - Atypical vascular lesion, see comment 11/01/2022 11:17 AM [facility] PATH[facility] LAB at 1117 CDT Microscopic Description and Comment Sections demonstrate three cores of tissue involved by a proliferation of thin-walled vessels by collagenous and edematous stroma. The vascular channels are highlighted by CD31 and are lined by small, uniform plump endothelial cells. No significant cytologic atypia or mitotic activity is noted and Ki-67 is low (less than 5%). Although the mass was clinically suspected to represent a lymph node, there is no lymphoid tissue or definitive capsule present. The circumscription of the lesion as well as lack of anastomosing vascular channels, multilayering or significant atypia are all reassuring features. However, the lesional size and lack of adjacent tissue in this biopsy specimen to assess for possible microscopic infiltration makes it difficult to definitively exclude a malignant process. Complete excision with a rim of adjacent tissue is recommended for definitive classification. 11/01/2022 11:17 AM [facility] Clinical History The patient is a 52-year-old woman with a centrally necrotic circumscribed hypoechoic solid right axillary mass (3.5 x 3.3 x 2.1 cm). 11/01/2022 11:17 AM [facility] PATH[facility] Materials Received Received are 5 slide(s), and 1 block (A1) labeled [id number] along with a copy of the outside pathology report. The materials originate from [facility], [address] [place] [address]. All original materials are returned to the referring institution, along with a copy of our final report. 11/01/2022 11:17 AM [facility] Pathologist Location at [facility] 11/01/2022 11:17 AM [facility] Disclaimer The performance characteristics of all immunohistochemical and indirect immunofluorescence stains (if any) cited in this report were determined by the Histopathology Laboratory of [facility]. Some of these tests were developed by [...] and interpreted by the attending (teaching) pathologist. 11/01/2022 11:17 AM CDT [facility] PATH[facility] LAB Embedded Images 11/01/2022 11:17 AM CDT [facility] PATH[facility] Pathology/Cytolo gy BIOPSY OF LYMPH NODE / Unknown 10/28/2022 9:10 AM CDT 10/29/2022 2:45 PM CDT us Ramirez Francis MD LAB - PATHOLOGY/CYTOLOGY ORDERAB LES Final Result [facility] [address] [phone] documented in this encounter Visit Diagnoses Diagnosis Illness, unspecified documented in this encounter
--- OUTSIDE RECORDS SUMMARY | 2024-12-28 10:32 | XMS_ITS | Encounter Summary ---
Author Organization [facility] Address [address] [facility] [place] [address] Care Team Providers Care Diesel Inspector Name Role Phone Unavailable Primary Care Provider Unavailabl e Encounter Details Date Type Department Care Team (Late st Contact Info) Description 10/28/2022 Lab Requisition [facility] - Pathology Lab [address] [place] [address] Ramirez Francis MD [address] [address] Localized swelling, mass and lump, right upper limb Social History Tobacco Use Types Packs/Day Years Used Date Smoking Tobacco: Never Assessed Comments Unknown Sex and Gender Information Value Date Recorded Sex Assigned at Not on file 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 Gender Identity Not on file Sexual Orientation Not on file documented as of this encounter Plan of Treatment Not on file documented as of this encounter Procedures Procedure Name Priority Date/Time Associated Diagnosis Comments FLOW CYTOMETRY TISSUE PANEL Routine 10/28/2022 9:10 AM CDT Localized swelling, mass and lump, right upper limb documented in this encounter Results * FLOW CYTOMETRY TISSUE PANEL (10/28/2022 9:10 AM CDT) Case Report Flow Cytometry Case: [id number] Authorizing Provider: Ramirez Francis MD Collected: 10/28/2022 09:10 AM Ordering Location: [facility] Care Pathology Lab Received: 10/28/2022 03:09 PM Pathologist: Asmita Muro MD Specimen: Axillary Lymph Node, RIGHT 10/28/2022 4:26 PM CDT [facility] Final Diagnosis Lymph node, right axilla, flow cytometric immunophenotypic analysis: - Insufficient hematopoietic cells for analysis. - See interpretation. 10/28/2022 4:26 PM [facility] at 1626 CDT Flow Cytometry Interpretation Preliminary characterization of the right axillary lymph node specimen demonstrates too few hematopoietic cells for flow cytometric analysis. A cytospin prepared from the flow cytometry specimen is reviewed for manager quality purposes. Virtually no cells are present. Flow cytometry is not performed. 10/28/2022 4:26 PM [facility] Flow Cytometry Results Too few hematopoietic cells for flow cytometric analysis. 10/28/2022 4:26 PM [facility] Reason for test Localized swelling, mass and lump, right upper limb 10/28/2022 4:26 PM [facility] Client Specimen ID # [id number] 10/28/2022 4:26 PM [facility] Pathologist Location at [facility] 10/28/2022 4:26 PM [facility] Disclaimer Test performed at [facility], [address] [place] [address], [id number]. *The established laboratory minimum viability is 70%. Values below the minimum may result in the failure to find an abnormal population of cells. This test was developed and its performance characteristics determined by the Flow Cytometry Laboratory. It has not been cleared by the [place] Food and Drug Administration (FDA). The FDA has determined that such clearance or approval is not necessary. This test is used for clinical purposes. It should not be regarded as investigational or for research. This laboratory is regulated under the Clinical Laboratory Improvement Amendments of 1998 (CLIA) as a qualified to perform high complexity clinical testing. 10/28/2022 4:26 PM T [facility] PATH[facility] Embedded Images 4:26 PM [facility] Pathology/Cytolo gy AXILLARY LYMPH NODE STRUCTURE / Unknown 10/28/2022 9:10 AM CDT 10/28/2022 3:09 PM CDT Ramirez Francis MD LAB - PATHOLOGY/CYTOLOGY ORDERAB LES Final Result [facility] [address] [place] [address], [facility] [phone] documented in this encounter Visit Diagnoses Diagnosis Localized swelling, mass and lump, right upper limb documented in this encounter
== END 2024-12-28 10:23 | disposition home or self-care (01) ==
PROVIDERS: PCP Nurse Practitioner Adult Health; Visit Provider Student in an Organized Health Care Education/Training Program
DX: Z12.31 Encounter for screening mammogram for malignant neoplasm of breast (principal)
CPT/HCPCS: 77063; 77067

== ENCOUNTER 2025-02-05 14:36 | Outpatient (CLI) | payer BC, SELFPAY ==
--- OUTSIDE RECORDS SUMMARY | 2025-02-04 16:00 | XMS_ITS | Encounter Summary ---
Author Organization [facility] Address [address] [place] [id number] Care Team Providers Care Pilot Boat Deckhand Name Role Phone Jaya Gibson MD Primary Care Provider [phone] Reason for Visit * Reason Comments Other Dizziness - Entered by patientStarted Tuesday and got better but then returned. Lips tingling. Encounter Details Date Type Department Care Team (Late st Contact Info) Description 02/04/2025 4:00 PM PSYCHIATRIC TECH Office Visit [facility] at [address] [address] Aggie Plata PA [address] [place] [address] [address] [place] [address] Dizziness (Primary Dx); Tingling of face Social History Tobacco Use Types Packs/Day Years Used Date Smoking Tobacco: Former Personal Safety Answer Date Recorded Have you ever been in or are you currently in a harmful physical or emotional relationship or is someone making you feel afraid or unsafe? Denies 02/04/2025 Comments Unknown Sex and Gender Information Value Date Recorded Sex Assigned at Not on file Legal Sex Female 10:46 AM CDT Gender Identity Not on file Sexual Orientation Not on file documented as of this encounter Last Filed Vital Signs Vital Sign Reading Time Taken Comments Blood Pressure 129/75 02/04/2025 3:54 PM PSYCHIATRIC TECH Pulse 75 02/04/2025 3:54 PM PSYCHIATRIC TECH Temperature 36.8 C (98.3 F) 02/04/2025 3:54 PM PSYCHIATRIC TECH Respiratory Rate 20 02/04/2025 3:54 PM PSYCHIATRIC TECH Oxygen Saturation 99% 02/04/2025 3:54 PM PSYCHIATRIC TECH Inhaled Oxygen Concentration - - Weight 70 kg (154 lb 6.4 oz) 02/04/2025 3:54 PM PSYCHIATRIC TECH Height - - Body Mass Index 28.24 12/20/2017 9:03 AM CDT documented in this encounter Functional Status documented as of this encounter Progress Notes * Aggie Plata PA - 02/04/2025 4:00 PM CST Images from the original note were not included. Subjective/Objective Patient ID: Mell Dowd is a 55 y.o. female. This patient has verbally consented to recording this visit in order to utilize AI technology in generating this note. Chief Complaint Other (Dizziness - Entered by patient/Started Tuesday and got better but then returned. Lips tingling. ) History of Present Illness Mell Dowd is a 55 year old female who presents with dizziness and facial tingling. Dizziness and altered sensation - Dizziness began on Tuesday morning with a sensation of tiredness and feeling 'out of it'. - Symptoms improved on Tuesday but recurred today with a stuffy nose and new tingling around the lips. - Tingling affects both upper and lower lips. - No fever or prolonged upper respiratory symptoms. Facial muscle weakness and orofacial dysfunction - Facial muscle weakness onset around January 21 or , following Botox injections on January 17. - Difficulty moving jaw and mouth correctly. - Significant anxiety related to inability to control facial muscles. Extremity weakness - Weakness in both hands, especially noticeable when typing. Headache - Intermittent headache throughout the day, onset today. Anxiety and dyspnea - Anxiety related to current symptoms. - Shortness of breath when thinking about symptoms, attributed to anxiety. - Reluctance to visit the hospital due to past stressful experiences. Review of Systems All other systems reviewed and are negative. Physical Exam Physical Exam Constitutional: Appearance: Normal appearance. HENT: Head: Normocephalic and atraumatic. Right Ear: External ear normal. Left Ear: External ear normal. Nose: Nose normal. Mouth/Throat: Pharynx: Oropharynx is clear. Eyes: Pupils: Pupils are equal, round, and reactive to light. Cardiovascular: Rate and Rhythm: Normal rate. Pulmonary: Effort: Pulmonary effort is normal. Musculoskeletal: General: Normal range of motion. Cervical back: Normal range of motion. Skin: General: Skin is warm and dry. Neurological: General: No focal deficit present. Mental Status: She is alert and oriented to person, place, and time. Cranial Nerves: No cranial nerve deficit. Motor: No weakness. Psychiatric: Mood and Affect: Mood normal. Behavior: Behavior normal. Comments: Anxious appearing Vitals: 02/04/25 1554 BP: 129/75 Pulse: 75 Resp: 20 Temp: 36.8 ??C (98.3 ??F) TempSrc: Oral SpO2: 99% Weight: 70 kg (154 lb 6.4 oz) No results found. No past medical history on file. Current Outpatient Medications: diazePAM (VALIUM) 5 mg tablet, Take one tablet every 8 hours for 2 days after surgery, then take one tablet every 8 hours as needed for muscle spasms., Disp: , Rfl: HYDROcodone-acetaminophen (NORCO) 5-325 mg per tablet, TAKE 1 TO 2 TABLETS EVERY 4 TO 6 HOURS NEEDED FOR PAIN., Disp: , Rfl: meloxicam (MOBIC) 7.5 mg tablet, Take 1 tablet (7.5 mg total) by mouth 2 (two) times a day., Disp: 30 tablet, Rfl: 0 ondansetron (ZOFRAN) 4 mg tablet, Take 1 tablet orally every 6 hours as needed for nasuea, Disp: , Rfl: scopolamine 1 mg over 3 days patch 3 day, Place on the skin., Disp: , Rfl: senna-docusate (PERICOLACE) 8.6-50 mg, Take 1 tablet twice a day for constipation while on narcotics, Disp: , Rfl: Allergies Allergen Reactions Tetracycline Other (See comments) Reaction: Other Social History Tobacco Use Smoking status: Former Smokeless tobacco: None Substance and Sexual Activity Drug use: None Sexual activity: None Alcohol Use: Not on file History reviewed. No pertinent surgical history. Procedures Assessment/Plan Results No results found for this or any previous visit (from the past 4 hours). Assessment & Plan Acute dizziness and perioral tingling Acute dizziness and perioral tingling with differential diagnosis including cardiac and neurologic etiology. Symptoms possibly exacerbated by anxiety. - Referred to emergency room for evaluation and reassurance. Anxiety related to health concerns Anxiety exacerbated by recent symptoms and internet searches, potentially contributing to perceivedsymptoms. - Provided reassurance and encouraged emergency room visit. - Discussed anxiety's impact on symptoms and need for evaluation. There are no diagnoses linked to this encounter. Disposition Treatment plan including expectations, follow up, and return precautions discussed with patient/parent, verbalizes understanding. Medication dosage, use, and potential adverse reactions discussed with patient/parent. Advised to follow up with PCP if symptoms do not resolve as expected or sooner if condition worsens. Signs/symptoms warranting ER evaluation reviewed. Patient and/or guardian was given an opportunity to ask questions, questions answered. QIANA Salgado Cosigned by Ariel Luque MD at 02/04/2025 4:23 PM PSYCHIATRIC TECH HIATRIC TECH HIATRIC TECH documented in this encounter Plan of Treatment Not on file documented as of this encounter Visit Diagnoses Diagnosis Dizziness- Primary Dizziness and giddiness Tingling of face documented in this encounter Care Teams Pilot Boat Deckhand Relationship Specialty Start Date End Date Jaya Gibson MD PCP - General 01/21/17 documented as of this encounter
--- OUTSIDE RECORDS SUMMARY | 2025-02-04 18:56 | XMS_ITS | Encounter Summary ---
Author Organization [facility] Healthcare Address [address] [place] [address] Care Team Providers Care Lay Out Inspector Name Role Phone Jaya Gibson MD Primary Care Provider [phone] Reason for Visit * Reason Comments Dizziness Encounter Details Date Type Department Care Team (Late st Contact Info) Description 02/04/2025 6:56 PM FOOD QUALITY TECHNICIAN - 02/04/2025 10:58 PM [facility] Emergency [address] [address] [place] [address] [facility] [place], [place] [id number] Dizziness (Primary Dx) Discharge Disposition: Discharge to home or self care Social History Tobacco Use Types Packs/Day Years [...] Sign Reading Time Taken Comments Blood Pressure 119/79 02/04/2025 10:52 PM FOOD QUALITY TECHNICIAN Pulse 58 02/04/2025 10:52 PM FOOD QUALITY TECHNICIAN Temperature 36.6 C (97.9 F) 02/04/2025 5:42 PM FOOD QUALITY TECHNICIAN Respiratory Rate 16 02/04/2025 10:5 2 PM FOOD QUALITY TECHNICIAN Oxygen Saturation 99% 02/04/2025 10: 52 PM FOOD QUALITY TECHNICIAN Inhaled Oxygen Concentration - - Weight 69.7 kg (153 lb 10.6 oz) 02/04/2025 5:46 PM FOOD QUALITY TECHNICIAN Height - - Body Mass Index 28.1 12/20/2017 9:03 AM CDT documented in this encounter Functional Status * Question Answer Date of Assessment Author Is the patient being treated today because it is known or suspected that they prepared, started, or tried to end their life? No 02/04/2025 5:42 PM Narda Sharpe RN * Question Answer Date of Assessment Author 1. In the past month, have you wished you were or that you could go to sleep and not wake up? No 02/04/2025 5:42 PM Narda Sharpe RN 2. In the past month, have you actually had any thoughts of killing yourself? No 02/04/2025 5:42 PM Narda Sharpe RN 6. Have you ever done anything, started to do anything, or prepared to do anything to end your life? No 02/04/2025 5:42 PM Chayo Sharpe RN * Suicide Risk Level Answer Date of Assessment Author No risk level 02/04/2025 5:42 PM Narda Sharpe RN * Fall Risk Assessment Tool - MEDFRAT Question Answer Date of Assessment Author Prior Fall Event (Autopopulated from EMR) None found 02/04/2025 5:53 PM Narda Sharpe RN Pt needs supervision/assistance with ambulation? (makes patient High risk) No 02/04/2025 5:53 PM Narda Sharpe RN History of falling in last 3 months, including since admission 0 02/04/2025 5:53 PM Narda Sharpe RN Confusion or disorientation 0 02/04/2025 5:53 PM Narda Sharpe RN Intoxicated or sedated 0 5:53 PM Narda Sharpe RN Impaired gait 0 02/04/2025 5:53 PM Narda Sharpe RN Mobility assist device used 0 02/04/2025 5:53 PM Narda Sharpe RN Altered elimination 0 02/04/2025 5 :53 PM FOOD QUALITY TECHNICIAN Narda Nugent RN Fall risk score: (1-2 low risk), (3-4 moderate risk), (5 or more high risk) 0 02/04/2025 5:53 PM Narda Sharpe RN Interventions - GENERAL USE as needed patient/family education 02/04/2025 5:53 PM FOOD QUALITY TECHNICIAN Narda Nugent RN * Question Answer Date of Assessment Author BP Location Left arm 02/04/2025 10:52 PM FOOD QUALITY TECHNICIAN Maurice Lucio RN BP Method Automatic 02/04/2025 10:52 PM FOOD QUALITY TECHNICIAN Maurice Lucio RN MAP (mmHg) 91 02/04/2025 10:52 PM FOOD QUALITY TECHNICIAN Maurice Lucio RN documented as of this encounter Mental Status * Question Answer Entry Date Author Level of Consciousness Alert;Awake 7:18 PM FOOD QUALITY TECHNICIAN Maurice Gomez RN Orientation Oriented X4 (person, place, time, situation) 02/04/2025 7:18 PM FOOD QUALITY TECHNICIAN Maurice Gomez RN documented in this encounter Discharge Instructions * Discharge Instructions* Carlos Buckner DO - 02/04/2025 10:45 PM FOOD QUALITY TECHNICIAN Make sure you drink plenty of fluids. Return to the emergency department for any worsening symptoms. Follow-up with your doctor for further evaluation. QUALITY TECHNICIAN * Attachments The following attachments cannot be sent through Care Everywhere. * Dizziness (AfterCare(R) Instructions(ER/ED)) (Peruvian) documented in this encounter Medications at Time of Discharge diazePAM (VALIUM) 5 mg tablet Take one tablet every 8 hours for 2 days after surgery, then take one tablet every 8 hours as needed for muscle spasms. 05/10/2017 HYDROcodone-acet aminophen (NORCO) 5-325 mg per tabletIndication s:Pain TAKE 1 TO 2 TABLETS EVERY 4 TO 6 HOURS NEEDED FOR PAIN. 05/10/2017 meloxicam (MOBIC) 7.5 mg tablet Take 1 tablet (7.5 mg total) by mouth 2 (two) times a day. 30 tablet 01/05/2018 ondansetron (ZOFRAN) 4 mg tablet Take 1 tablet orally every 6 hours as needed for nasuea 05/10/2017 scopolamine 1 mg over 3 [address] patch [address] on the skin. 04/25/2017 senna-docusate (PERICOLACE) 8.6-50 mg Take 1 tablet twice a day for constipation while on narcotics 05/10/2017 documented as of this encounter Discharge Disposition Disposition Code Departure Means Destination Comment s Discharge to home or self care documented in this encounter ED Notes * Carlos Buckner, DO - 02/04/2025 6:45 PM CSTAssociated Order(s): Critical Care HPI Chief Complaint Patient presents with Dizziness HPI Patient seen at 6:[address] scanner room 10:40 PM - Mell Dowd is a 55 y.o. female patient presenting to the ED complaining of dizziness, perioral tingling, feeling like she was having trouble concentrating today at work CODE STROKE activated by ED staffing specialist LKW 2200 yesterday Patient says that she felt well on Tuesday, but when she woke up Tuesday she had nausea and a decreased appetite. She felt like she was coming down with some kind of an illness. On Tuesday, she said she started feeling better and thought things were back to normal. She woke up this morning between 6 and 6:30 a.m.. She says she felt dizzy. She has had some intermittent dizziness and intermittently has felt off balance when she walks. Later in the day, she started noticing ringing in her ears. She has a history of tinnitus. She also has noticed some perioral tingling, not unilateral. At the time of my exam, she had no balance disturbance and had a normal gait. She says her symptomsregarding that are currently gone. She admittedly states she is worried that some of these symptoms may be anxiety related. She initially presented to an urgent care facility and they directed her here for further evaluation. She denies any fever. No vision changes. No weakness or numbness in the extremities. No chest pain,shortness of breath, or abdominal pain. No nausea or vomiting today Past medical history noted for restless leg syndrome, osteoarthritis in the hands, HRT Patient History: No past medical history on file. No past surgical history on file. Family History Problem Relation Age of Onset Heart disease Father Family history of cardiac disorder - (Added by TW Conv) Arthritis Father Family history of arthritis - (Added by TW Conv) Cancer Father Family history of malignant neoplasm - (Added by TW Conv) Kidney disease Father Family history of kidney disease - (Added by TW Conv) Heart disease Other Family history of cardiac disorder - (Added by TW Conv) Scoliosis Son Family history of scoliosis - (Added by TW Conv) Scoliosis Other Family history of scoliosis - (Added by TW Conv) Arthritis Other Family history of arthritis - (Added by TW Conv) Cancer Mother Family history of malignant neoplasm - (Added by TW Conv) Lung disease Mother Lung trouble - (Added by TW Conv) Cancer Other Family history of malignant neoplasm - (Added by TW Conv) Kidney disease Brother Family history of kidney disease - (Added by TW Conv) Kidney disease Other Family history of kidney disease - (Added by TW Conv) Lung disease Other Lung trouble - (Added by TW Conv) Social History Tobacco Use Smoking status: Former Smokeless tobacco: Not on file Substance and Sexual Activity Drug use: Not on file Sexual activity: Not on file Alcohol Use: Not on file Review of Systems Review of Systems Physical Exam ED Triage Vitals Temp Pulse Resp BP SpO2 02/04/25174102/04/25174102/04/25174102/04/25174102/04/251741 36.6 ??C (97.9 ??F) 66 16 143/93 99 % Temp src Heart Rate Source Patient Position BP Location FiO2 (%) -- 02/04/25174102/04/25174102/04/251741 -- Monitor;Pulse Oximetry Sitting Right arm Height Height Method Weight Weight Method -- -- 02/04/25174502/04/251745 69.7 kg (153 lb 10.6 oz) Standing scale Physical Exam Vitals and nursing note reviewed. Exam conducted with a supervisor paint present. Constitutional: General: She is not in acute distress. Appearance: She is well-developed. HENT: Head: Normocephalic and atraumatic. Right Ear: External ear normal. Left Ear: External ear normal. Nose: Nose normal. Mouth/Throat: Mouth: Mucous membranes are moist. Eyes: Extraocular Movements: Extraocular movements intact. Conjunctiva/sclera: Conjunctivae normal. Pupils: Pupils are equal, round, and reactive to light. Cardiovascular: Rate and Rhythm: Normal rate and regular rhythm. Heart sounds: No murmur heard. Pulmonary: Effort: Pulmonary effort is normal. No respiratory distress. Breath sounds: Normal breath sounds. Abdominal: General: Bowel sounds are normal. There is no distension. Palpations: Abdomen is soft. Tenderness: There is no abdominal tenderness. Musculoskeletal: General: No swelling. Normal range of motion. Cervical back: Neck supple. Right lower leg: No edema. Left lower leg: No edema. Skin: General: Skin is warm and dry. Capillary Refill: Capillary refill takes less than 2 seconds. Neurological: General: No focal deficit present. Mental Status: She is alert and oriented to person, place, and time. Cranial Nerves: No cranial nerve deficit. Sensory: No sensory deficit. Motor: No weakness. Coordination: Coordination normal. Gait: Gait normal. Psychiatric: Mood and Affect: Mood normal. Behavior: Behavior normal. Thought Content: Thought content normal. Judgment: Judgment normal. Critical Care Performed by: Carlos Buckner DO Authorized by: Carlos Buckner DO Critical care provider statement: As reflected in the history, physical exam, orders, notes, and/or MDM, I was personally present while the patient was critically ill and provided critical care services for 34 minutes, excluding timeinvolved in separately billable procedures. Critical care was necessary to treat or prevent imminent or life- threatening deterioration of the following condition(s): severe neurologic condition Critical care was time spent by me providing the following: continuous telemetry, continuous pulse oximetry and serial bedside patient exams frequent neurologic exams and decision regarding acute lytic therapy CODE STROKE management I provided emergent necessary critical care medicine services to this patient. I ordered and reviewed test results and/or imaging studies. I spent time documenting in the medical record. [facility] Labs Reviewed DIFFERENTIAL AUTO - Abnormal Result Value Neutrophil abs 5.20 Imm gran abs 0.02 Lymphocyte abs 2.09 Monocyte abs 0.65 Eosinophil abs 0.19 Basophil abs 0.11 (*) Neutrophil pct 63.0 Imm gran pct 0.2 Lymphocyte pct 25.3 Monocyte pct 7.9 Eosinophil pct 2.3 Basophil pct 1.3 URINALYSIS AND REFLEX TO MICROSCOPIC AND CULTURE Color, ur Yellow Clarity, ur Clear Specific gravity, ur 1.016 pH, urine 6.5 Protein, ur ql Negative Glucose, ur ql Negative Ketones, ur Negative Bilirubin, ur Negative Blood, ur Negative Urobilinogen, ur <2.0 Nitrite, ur Negative Leukocyte esterase, ur Negative UA reflex comment Value: Reflex conditions for microscopic UA and culture not met. INFLUENZA A/B, RSV, AND COVID-19 PCR COVID-19 RNA Negative Influenza A RNA Negative Influenza B RNA Negative RSV RNA Negative Narrative: Is the Patient experiencing symptoms consistent with COVID?->Yes URINALYSIS AND REFLEX TO MICROSCOPIC AND CULTURE CBC WITH AUTO DIFFERENTIAL WBC 8.26 Hgb 13.8 Hct 40.7 Plt 345 MPV 9.2 RBC 4.62 MCV 88.1 MCH 29.9 MCHC 33.9 RDW CV 13.1 RDW SD 42.0 NRBC abs 0.00 COMPREHENSIVE METABOLIC PANEL Sodium 141 Potassium, pl 3.9 Chloride 104 CO2 27 Anion gap 10 BUN 16 Creatinine 0.98 Glucose 99 Calcium 9.4 Bilirubin, total 0.3 Protein, pl 7.0 Albumin 4.6 Alk phos 63 ALT 14 AST 15 PROTIME-INR PT 12.80 INR 0.95 APTT aPTT 32 Narrative: Potential stroke patient. EGFR eGFR 68 TROPONIN T HIGH-SENSITIVITY SERIES (BASELINE, 2HR, 4HR, 6HR) TROPONIN T HIGH-SENSITIVITY 2-HOUR Trop T hs <6 Trop T hs delta 0 Trop T hs interp Insignificant TROPONIN T HIGH-SENSITIVITY SERIES (BASELINE, 2HR, 4HR, 6HR) Trop T hs <6 TROPONIN T HIGH-SENSITIVITY SERIES (BASELINE, 2HR, 4HR, 6HR) POCT GLUCOSE DEVICE EKG Time 5:55 p.m. Normal sinus rhythm 68 beats per minute Normal axis Normal T-waves No STEMI Interpretation by me CT Stroke Head WO Contrast Final Result No acute intracranial abnormality. Findings relayed to referring clinician at the time of this dictation by radiology manager technical support. Electronically signed by: Maria De Jesus Carlisle M.D. BP 126/80 Pulse 60 Temp 36.6 ??C (97.9 ??F) Resp 19 Wt 69.7 kg (153 lb 10.6 oz) SpO2 98% BMI 28.10 kg/m?? MDM Number of Diagnoses or Management Options Dizziness Diagnosis management comments: Differential diagnosis includes but not limited to viral syndrome, electrolyte disturbance, HARSHAD, intracranial mass, CVA, intracranial hemorrhage, anxiety Amount and/or Complexity of Data Reviewed Clinical lab tests: ordered Tests in the radiology section of CPT??: ordered Tests in the medicine section of CPT??: ordered and reviewed Decide to obtain previous medical records or to obtain history from someone other than the patient:yes Review and summarize past medical records: yes Independent visualization of images, tracings, or specimens: yes Risk of Complications, Morbidity, and/or Mortality Presenting problems: high Diagnostic procedures: moderate Management options: moderate 10:40 p.m. 5 hour observation here, no new symptoms. No dizziness Gait is normal No neuro deficits I have updated her regarding all test results. She is stable to discharge and will have close follow-up with PMD Strict return instructions were provided Impression: Dizziness Carlos Buckner DO 02/04/250 QUALITY TECHNICIAN * Narda Nugent RN - 02/04/2025 5:46 PM CST Pt to ED with c/o left sided neck pain, dizziness, feel like off balance, difficulty concentrating, and some numbness to lower part of her face since Tuesday. Reports she did have some Botox in bilateral jaw region 01/17. +SOB with mild exertion. +intermittent STANTON x 3 days. Denies v/d, fever or chills. QUALITY TECHNICIAN documented in this encounter Plan of Treatment Pending Results Name Type Priority Associated Diagnoses Date /Time Troponin T high-sensitivity series (baseline, 2hr, 4hr, 6hr) Lab STAT 02/04/2025 6:17 PM FOOD QUALITY TECHNICIAN Scheduled Orders Name Type Priority Associated Diagnoses Orde r Schedule Urinalysis reflex to microscopic and culture Urine Microbiology STAT STAT for 1 Occurrences starting 02/04/2025 until 02/04/2025 Troponin T high-sensitivity series (baseline, 2hr, 4hr, 6hr) Lab STAT Once for 1 Occurrences starting 02/04/2025 until 02/04/2025 documented as of this encounter Procedures Procedure Name Priority Date/Time Associated Diagnosis Comments TROPONIN T HIGH-SENSITIVITY 2-HOUR Timed 02/04/2025 8:29 PM FOOD QUALITY TECHNICIAN INFLUENZA A/B, RSV, AND COVID-19 PCR STAT 02/04/2025 7:25 PM FOOD QUALITY TECHNICIAN APTT STAT 02/04/2025 6:51 PM FOOD QUALITY TECHNICIAN PROTIME-INR STAT 02/04/2025 6:51 PM FOOD QUALITY TECHNICIAN [place] [facility] C[facility] ILL/INJURED PATIENT INIT 30-74 MIN Routine 02/04/2025 6:45 PM FOOD QUALITY TECHNICIAN CT STROKE PROTOCOL WO CONTRAST Critical/Life-T hreatening 02/04/2025 6:42 PM FOOD QUALITY TECHNICIAN TROPONIN T HIGH-SENSITIVITY SERIES (BASELINE, 2HR, 4HR, 6HR) STAT 02/04/2025 6:17 PM FOOD QUALITY TECHNICIAN EGFR STAT 02/04/2025 6:17 PM FOOD QUALITY TECHNICIAN DIFFERENTIAL AUTO STAT 02/04/2025 6:1 7 PM FOOD QUALITY TECHNICIAN CBC WITH AUTO DIFFERENTIAL STAT 02/04/2025 6:17 PM FOOD QUALITY TECHNICIAN COMPREHENSIVE METABOLIC PANEL STAT 02/04/2025 6:17 PM FOOD QUALITY TECHNICIAN URINALYSIS AND REFLEX TO MICROSCOPIC AND CULTURE STAT 02/04/2025 6:04 PM FOOD QUALITY TECHNICIAN ECG 12-LEAD STAT 02/04/2025 5:55 PM FOOD QUALITY TECHNICIAN documented in this encounter Results * Troponin T high-sensitivity 2-hour (02/04/2025 8:29 PM FOOD QUALITY TECHNICIAN) Trop T hs <6 <=14 ng/L Comment: Interpretive Data For further hscTnT resources including the diagnostic algorithm and an aid in interpretation, copy and paste this link: https://nrl.testcatalog.org/show/hsTrop Current Interpretive Data last revised 2020. Trop T hs delta 0 ng/L [facility] Trop T hs interp Insignificant [facility] Blood 02/04/2025 8:29 PM FOOD QUALITY TECHNICIAN 02/04/2025 8:31 PM FOOD QUALITY TECHNICIAN Carlos Buckner DO LAB BLOOD ORDERABLES Final Res ult Performing Organization Address [facility] Co de Phone Number CHETAN [address] [address] * Influenza A/B, RSV, and COVID-19 PCR Nasopharyngeal (02/04/2025 7:25 PM FOOD QUALITY TECHNICIAN) [facility] COVID-19 RNA Negative Negative Influenza A RNA Negative Negative [facility] Influenza B RNA Negative Negative [facility] RSV RNA Negative Negative [facility] Comment: Interpretive data: Testing performed by [facility]. This test is performed using the [employer] Xpert Xpress CoV-2/Flu/RSV plus assay. This is a multiplex, real-time reverse transcriptase PCR assay intended for the qualitative detection of nucleic acid from SARS-CoV-2, influenza A, influenza B, and respiratory syncytial virus. This assay has been cleared by the [place] Food and Drug administration. The performance characteristics have been verified by the [facility]. Results must be considered in the clinical context, and a negative result does not rule out infection. Interpretive Data last revised 2023 Nasopharyngeal 02/04/2025 7: 25 PM FOOD QUALITY TECHNICIAN 02/04/2025 7:28 PM FOOD QUALITY TECHNICIAN Narrative [facility] - 02/04/2025 8:33 PM FOOD QUALITY TECHNICIAN Is the Patient experiencing symptoms consistent with COVID?->Yes us Carlos Buckner DO LAB MICROBIOLOGY - GENERAL ORD ERABLES Final Result Performing Organization Address [facility] Co de Phone Number [address] [address] * aPTT (02/04/2025 6:51 PM FOOD QUALITY TECHNICIAN) aPTT 32 22 - 37 sec Comment: Interpretive data aPTT test has not been evaluated for monitoring heparin therapy. The anti-Xa is the preferred test. Current interpretive data was last revised on 2019. Blood Venous blood specimen / Unknown 02/04/2025 6:51 PM FOOD QUALITY TECHNICIAN 02/04/2025 6:53 PM FOOD QUALITY TECHNICIAN Narrative CHETAN - 02/04/2025 7:10 PM FOOD QUALITY TECHNICIAN Potential stroke patient. Carlos Buckner LAB BLOOD ORDERABLES Final Res ult Performing Organization Address [facility] de Phone Number [address] [place] [address] * Protime-INR (02/04/2025 6:51 PM FOOD QUALITY TECHNICIAN) Pathologist [facility] PT 12.80 12.00 - 14.60 sec INR 0.95 0.90 - 1.20 [facility] Comment: Interpretive data Oral anticoagulant therapeutic ranges: Venous thromboembolism prophylaxis or treatment: 2.0-3.0 CARDIOLOGY Standard range: 2.0-3.0 High-intensity range: 2.5-3.5 Refer to indication-specific guidelines for appropriate target ranges for prosthetic heart valve replacement. Current interpretive data was last revised on 2019. Blood 02/04/2025 6:5 1 PM FOOD QUALITY TECHNICIAN 02/04/2025 6:53 PM FOOD QUALITY TECHNICIAN Carlos Buckner DO LAB BLOOD ORDERABLES Final Res ult Performing Organization Address [facility] Co de Phone Number [address] [place] [address] * [place] [facility]IT[facility] CARE ILL/INJURED PATIENT INIT 30-74 MIN (02/04/2025 6:45 PM FOOD QUALITY TECHNICIAN) Narrative Carlos Buckner DO - 02/04/2025 6:45 PM FOOD QUALITY TECHNICIAN Carlos Buckner DO 02/04/2025 10:40 PM Critical Care Performed by: Carlos Buckner DO Authorized by: Carlos Buckner DO Critical care provider statement: As reflected in the history, physical exam, orders, notes, and/or MDM, I was personally present while the patient was critically ill and provided critical care services for 34 minutes, excluding time involved in separately billable procedures. Critical care was necessary to treat or prevent imminent or life-threatening deterioration of the following condition(s): severe neurologic condition Critical care was time spent by me providing the following: continuous telemetry, continuous pulse oximetry and serial bedside patient exams frequent neurologic exams and decision regarding acute lytic therapy CODE STROKE management I provided emergent necessary critical care medicine services to this patient. I ordered and reviewed test results and/or imaging studies. I spent time documenting in the medical record. us Carlos Buckner DO IN CLINIC/BEDSIDE ORDERABLES F inal Result * CT Stroke Head WO Contrast (02/04/2025 6:42 PM FOOD QUALITY TECHNICIAN) Anatomical Region Laterality Modality Head N/A Computed Tomogra phy 02/04/2025 6:53 PM FOOD QUALITY TECHNICIAN Impressions 02/04/2025 6:53 PM FOOD QUALITY TECHNICIAN No acute intracranial abnormality. Findings relayed to referring clinician at the time of this dictation by radiology manager technical support. Electronically signed by: Maria De Jesus Carlisle M.D. Narrative 02/04/2025 6:53 PM FOOD QUALITY TECHNICIAN EXAMINATION: CT STROKE HEAD WO CONTRAST HISTORY: Stroke, follow up Stroke. Pt to ED with c/o left sided neck pain, dizziness, balance issues, difficulty concentrating, and some numbness to lower part of face since Tuesday. Pt reports having some Botox in bilateral jaw region 01/17. +intermittent STANTON x 3 days. TECHNIQUE: Axial images acquired through the brain without intravenous contrast. Images stored on PACS. Automated exposure control was used as a dose optimization technique for this examination. COMPARISON: There is no comparison. FINDINGS: BRAIN: No acute hemorrhage, edema or mass effect. No recent infarct. Shankar-white differentiation is preserved. No findings to indicate acute infarction. EXTRA-AXIAL SPACES: No fluid collections. No masses. CALVARIUM: No fracture. SINUSES/MASTOIDS: No fluid or mucosal thickening. ORBITS: Orbits OTHER: No other significant abnormality. Procedure Note Maria De Jesus Carlisle MD - 02/04/2025 EXAMINATION: CT STROKE HEAD WO CONTRAST HISTORY: Stroke, follow up Stroke. Pt to ED with c/o left sided neck pain, dizziness, balance issues, difficulty concentrating, and some numbness to lower part of face since Tuesday. Pt reports having some Botox in bilateral jaw region 01/17. +intermittent STANTON x 3 days. TECHNIQUE: Axial images acquired through the brain without intravenous contrast. Images stored on PACS. Automated exposure control was used as a dose optimization technique for this examination. COMPARISON: There is no comparison. FINDINGS: BRAIN: No acute hemorrhage, edema or mass effect. No recent infarct. Shankar-white differentiation is preserved. No findings to indicate acute infarction. EXTRA-AXIAL SPACES: No fluid collections. No masses. CALVARIUM: No fracture. SINUSES/MASTOIDS: No fluid or mucosal thickening. ORBITS: Orbits OTHER: No other significant abnormality. IMPRESSION: No acute intracranial abnormality. Findings relayed to referring clinician at the time of this dictation by radiology manager technical support. Electronically signed by: Maria De Jesus Carlisle M.D. us Carlos Buckner DO IMG CT PROCEDURES Final Result * Troponin T high-sensitivity series (baseline, 2hr, 4hr, 6hr) (02/04/2025 6:17 PM FOOD QUALITY TECHNICIAN) Trop T hs <6 <=14 ng/L Comment: Interpretive Data For further hscTnT resources including the diagnostic algorithm and an aid in interpretation, copy and paste this link: [email or web address].testcatalog.org/show/hsTrop Current Interpretive Data last revised 2020. Blood 02/04/2025 6:17 PM FOOD QUALITY TECHNICIAN 02/04/2025 6:22 PM FOOD QUALITY TECHNICIAN us Carlos Buckner DO LAB BLOOD ORDERABLES Final Res ult JOHNEFP [address] [facility] [place] [address] * eGFR (02/04/2025 6:17 PM FOOD QUALITY TECHNICIAN) Pathologist [facility] eGFR 68 >=60 mL/min/1. 73 m2 Comment: Interpretive Data Reference Interval Normal >/= 90 mL/min/1.73m2 Mildly decreased* 60 - 89 mL/min/1.73m2 Mildly to moderately decreased 45 - 59 mL/min/1.73m2 Moderately to severely decreased 30 - 44 mL/min/1.73m2 Severely decreased 15 - 29 mL/min/1.73m2 Kidney Failure < 15 mL/min/1.73m2 *Relative to young adult level Estimated glomerular filtration rate is determined by the 2020 CKD-EPI equation recommended by the National Kidney Foundation (A Unifying Approach to GFR Estimation: Recommendations of the NKF-ASK Task Force on Reassessing the Inclusion of Race in Diagnosing Kidney Disease, JASN 2020). The CKD-EPI equation should not be used for patients with unstable renal function and has not been validated in children and those over 70. Current interpretive data was last reviewed 2021. Blood 02/04/2025 6:17 PM FOOD QUALITY TECHNICIAN 02/04/2025 6:22 PM FOOD QUALITY TECHNICIAN us Carlos Buckner DO LAB BLOOD ORDERABLES Final Res ult CHETAN [address] [facility] [place] [address] * (ABNORMAL) Differential, auto (02/04/2025 6:17 PM FOOD QUALITY TECHNICIAN) [facility] Neutrophil abs 5.20 1.50 - 6.50 K/cumm Imm gran abs 0.02 0.00 - 0.10 K/cumm [facility] Lymphocyte abs 2.09 0.80 - 3.30 K/cumm [facility] Monocyte abs 0.65 0.20 - 0.80 K/cumm [facility] Eosinophil abs 0.19 0.00 - 0.50 K/cumm [facility] Basophil abs 0.11(H) 0.00 - 0.10 K/cumm [facility] Neutrophil pct 63.0 % [facility] Comment: Interpretive Data Percent cell count reference ranges are not reported, since discordance with absolute values may lead to misinterpretation of CBC data. Current Interpretive Data was last revised on 2017. Imm gran pct 0.2 % [facility] Comment: Interpretive Data Percent cell count reference ranges are not reported, since discordance with absolute values may lead to misinterpretation of CBC data. Current Interpretive Data was last revised on 2017. Lymphocyte pct 25.3 % [facility] Comment: Interpretive Data Percent cell count reference ranges are not reported, since discordance with absolute values may lead to misinterpretation of CBC data. Current Interpretive Data was last revised on 2017. Monocyte pct 7.9 % [facility] Comment: Interpretive Data Percent cell count reference ranges are not reported, since discordance with absolute values may lead to misinterpretation of CBC data. Current Interpretive Data was last revised on 2017. Eosinophil pct 2.3 % [facility] Comment: Interpretive Data Percent cell count reference ranges are not reported, since discordance with absolute values may lead to misinterpretation of CBC data. Current Interpretive Data was last revised on 2017. Basophil pct 1.3 % [facility] Comment: Interpretive Data Percent cell count reference ranges are not reported, since discordance with absolute values may lead to misinterpretation of CBC data. Current Interpretive Data was last revised on 2017. Blood 02/04/2025 6:17 PM FOOD QUALITY TECHNICIAN 02/04/2025 6:22 PM FOOD QUALITY TECHNICIAN us Carlos Buckner DO LAB BLOOD ORDERABLES Final Res ult [facility] [address] [facility] Department [place] [address] * Comprehensive metabolic panel (02/04/2025 6:17 PM FOOD QUALITY TECHNICIAN) Sodium 141 135 - 145 mmol/L Potassium, pl 3.9 3.3 - 4.9 mmol/L [facility] Chloride 104 97 - 110 mmol/L [facility] CO2 27 22 - 32 mmol/L [facility] Anion gap 10 2 - 15 mmol/L [facility] BUN 16 6 - 25 mg/dL [facility] Creatinine 0.98 0.60 - 1.10 mg/dL [facility] Glucose 99 70 - 199 mg/dL [facility] Comment: Interpretive Data Fasting glucose >/= 126 mg/dl is diagnostic for diabetes. Fasting is defined as no caloric intake for at least 8 hours. Fasting glucose between 100 mg/dl to 125 mg/dl is diagnostic of prediabetes. In a patient with classic symptoms of hyperglycemia or hyperglycemic crisis, a random glucose >/= 200 mg/dl is diagnostic for diabetes. In the absence of unequivocal hyperglycemia, results should be confirmed by repeat testing. The classification and Diagnosis of Diabetes Diabetes Care 2021; 46: S19-S40. Current interpretive data was last revised 2022. Calcium 9.4 8.5 - 10.3 mg/dL [facility] Bilirubin, total 0.3 0.1 - 1.2 mg/dL [facility] Protein, pl 7.0 6.5 - 8.5 g/dL [facility] Albumin 4.6 3.5 - 5.0 g/dL [facility] Alk phos 63 40 - 130 Units/L [facility] ALT 14 7 - 45 Units/L [facility] AST 15 10 - 45 Units/L [facility] Blood 02/04/2025 6:17 PM FOOD QUALITY TECHNICIAN 02/04/2025 6:22 PM FOOD QUALITY TECHNICIAN us Carlos Buckner DO LAB BLOOD ORDERABLES Final Res ult [facility] [address] [facility] [place] [address] * CBC with auto differential (02/04/2025 6:17 PM FOOD QUALITY TECHNICIAN) Pathologist [facility] WBC 8.26 3.80 - 9.90 K/cumm Hgb 13.8 11.9 - 15.5 g/dL [facility] Hct 40.7 35.6 - 45.5 % [facility] Plt 345 150 - 400 K/cumm [facility] MPV 9.2 9.1 - 12.3 fL [facility] RBC 4.62 3.90 - 5.20 M/cumm [facility] MCV 88.1 81.3 - 96.4 fL [facility] MCH 29.9 27.1 - 33.3 pg [facility] MCHC 33.9 32.3 - 35.7 g/dL [facility] RDW CV 13.1 11.1 - 14.9 % [facility] RDW SD 42.0 35.7 - 48.1 fL [facility] NRBC abs 0.00 0.00 - 0.01 K/cumm [facility] Blood 02/04/2025 6:17 PM FOOD QUALITY TECHNICIAN 02/04/2025 6:22 PM FOOD QUALITY TECHNICIAN Carlos Buckner DO LAB BLOOD ORDERABLES Final Res ult Performing Organization Address City/[facility]/ZIP Co de Phone Number [facility] [address] [place] [address] * Urinalysis reflex to microscopic and culture Urine (02/04/2025 6:04 PM FOOD QUALITY TECHNICIAN) Color, ur Yellow Yellow Clarity, ur Clear Clear [facility] Specific gravity, ur 1.016 1.003 - 1.030 [facility] pH, urine 6.5 [facility] Comment: Interpretive Data U rine pH is affected by diet, medications, systemic acid-base disturbances, and renal tubular function. pH may affect urinary stone formation. For example, urine pH below 6.0 may help reduce the tendency for calcium phosphate stones and pH greater than 6.0 may reduce the tendency for uric acid stone formation. Source: [facility] Current Interpretive Data was last revised on 2017 Protein, ur ql Negative Negative [facility] Glucose, ur ql Negative Negative [facility] Ketones, ur Negative Negative [facility] Bilirubin, ur Negative Negative [facility] Blood, ur Negative Negative [facility] Urobilinogen, ur <2.0 <2.0 mg/dL [facility] Nitrite, ur Negative Negative [facility] Leukocyte esterase, ur Negative Negative [facility] UA reflex comment Reflex conditions for microscopic UA and culture not met. [facility] Urine 02/04/2025 6:04 PM FOOD QUALITY TECHNICIAN 02/04/2025 6:07 PM FOOD QUALITY TECHNICIAN us Carlos Buckner DO LAB MICROBIOLOGY - GENERAL ORD ERABLES Final Result Performing Organization Address City/[facility]/ZIP Co de Phone Number CHETAN [address] [facility] Department [place] [address] * ECG 12 lead (02/04/2025 5:55 PM FOOD QUALITY TECHNICIAN) Ventricular Rate EKG/Min 68 BPM [facility] Atrial Rate 68 BPM [facility] WA-Interval (MSEC) 168 ms [facility] QRS-Interval (MSEC) 92 ms [facility] QT-Interval (MSEC) 374 ms [facility] QTc 397 ms [facility] P [place] 30 degrees [facility] R [place] 37 degrees [facility] T [place] 35 degrees [facility] Diagnosis Normal sinus rhythm with sinus arrhythmia Normal ECG No previous ECGs available Confirmed by SULTAN GRADY M.D. ([id number]) on 02/04/2025 11:18:07 PM [facility] 02/04/2025 5:55 PM FOOD QUALITY TECHNICIAN 02/04/2025 11:18 PM FOOD QUALITY TECHNICIAN us Carlos Buckner DO ECG ORDERABLES Final Result [facility] documented in this encounter Visit Diagnoses Diagnosis Dizziness- Primary Dizziness and giddiness documented in this encounter Orders Lab Orders Without Results Count Last Ordered D ate First Ordered Date TROPONIN T HIGH-SENSITIVITY SERIES (BASELINE, 2HR, 4HR, 6HR) 1 02/04/2025 documented in this encounter Additional Health Concerns Infection Onset Date Last Indicated Resolved Time COVID: Suspected 02/04/2025 02/04/2025 02/04/2025 8:34 PM FOOD QUALITY TECHNICIAN documented as of this encounter Care Teams Lay Out Inspector Relationship Specialty Start Date End Date Jaya Gibson MD PCP - General 01/21/17 documented as of this encounter
--- NOTE | ~2025-02-05 | XR_ITS ---
EXAMINATION: XR hand BI arthritis min 3V DATE: 02/05/2025 14:52 INDICATION: Pain TECHNIQUE: Bilateral x-rays of the hands were obtained. COMPARISON: None. FINDINGS: Left hand: moderately advanced osteoarthritic degenerative changes at the ring finger proximal interphalangeal joint. Milder osteoarthritic degenerative changes at the remaining interphalangeal joints. Mild to moderate osteoarthritic degenerative changes also developing at the thumb CMC joint. Right hand: Mild to moderate osteoarthritic changes developing at the interphalangeal joints, especially in the distal interphalangeal joints. Mild osteoarthritic degenerative changes at the thumb CMC joint. No acute or aggressive bone or soft tissue process seen involving either right or left hand. IMPRESSION: 1. Mild to moderate osteoarthritic degenerative appearing changes involving several joints in both hands as detailed above. 2. No acute or aggressive bony or soft tissue process seen. Reviewed, dictated and finalized at location A. NT DIRECTOR IMPRESSION: 1. Mild to moderate osteoarthritic degenerative appearing changes involving sev eral joints in both hands as detailed above. 2. No acute or aggressive bony or soft tissue process seen.
--- OUTSIDE RECORDS SUMMARY | 2025-02-05 14:40 | XMS_ITS | Encounter Summary ---
Author Organization [facility] Address [address] [facility] [place] [address] Care Team Providers Care Logistics Project Manager Name Role Phone Unavailable Primary Care Provider Unavailabl e Encounter Details Date Type Department Care Team (Late st Contact Info) Description 11/05/2022 Lab Requisition [facility] - Pathology Lab [address] [place] [address] Chao Fernández MD [address] [place] [address] Illness, unspecified Social History Tobacco Use Types Packs/Day Years Used Date Smoking Tobacco: Never Assessed Comments Unknown Sex and Gender Information Value Date Recorded Sex Assigned at Not on file 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 Gender Identity Not on file Sexual Orientation Not on file documented as of this encounter Plan of Treatment Not on file documented as of this encounter Procedures Procedure Name Priority Date/Time Associated Diagnosis Comments PATHOLOGY TISSUE Routine 11/04/2022 11:5 7 AM CDT Illness, unspecified documented in this encounter Results * PATHOLOGY TISSUE (11/04/2022 11:57 AM CDT) Case Report Surgical Pathology Report Case: [id number] Authorizing Provider: Chao Fernández MD Collected: 11/04/2022 11:57 AM Ordering Location: [facility] Care Pathology Lab Received: 11/05/2022 04:14 PM Pathologist: Liliana Bergman MD Specimen: Soft Tissue Mass, Right axillary mass 11/08/2022 8:01 AM CDT [facility] Final Diagnosis Soft tissue mass, right axilla, excision ([id number], 11/04/22): - Vascular transformation of lymph node sinuses, see comment 11/08/2022 8:01 AM [facility] PATH[facility] at 0801 CDT Microscopic Description [...] is a benign finding. 11/08/2022 8:01 AM [facility] Clinical History The patient is a 52 year old woman with a right axillary mass. 11/08/2022 8:01 AM [facility] Materials Received Received are 10 slide(s) labeled [id number] along with a copy of the outside pathology report. [place] [address]. All original materials are returned to the referring institution, along with a copy of our final report. 11/08/2022 8:01 AM [facility] Pathologist Location at [facility] 11/08/2022 8:01 AM [facility] Disclaimer The performance characteristics of all immunohistochemical and indirect immunofluorescence stains (if any) cited in this report were determined by the Histopathology Laboratory of [facility]. Some of these tests were developed by [...] the attending (teaching) pathologist. 11/08/2022 8:01 AM [facility] Embedded Images 11/08/2022 8:01 AM [facility] Pathology/Cytolo gy SOFT TISSUE MASS / Unknown 11/04/2022 11:57 AM CDT 11/05/2022 4:14 PM CDT us Chao Fernández MD LAB - PATHOLOGY/CYTOLOGY OR DERABLES Final Result [facility] PATHOLOGY LAB [address] [phone] documented in this encounter Visit Diagnoses Diagnosis Illness, unspecified documented in this encounter
--- OUTSIDE RECORDS SUMMARY | 2025-02-05 14:40 | XMS_ITS | Encounter Summary ---
Author Organization [facility] Address [address] [facility] [address] Care Team Providers Care Moderate Needs Teacher Name Role Phone Unavailable Primary Care Provider Unavailabl e Encounter Details Date Type Department Care Team (Late st Contact Info) Description 10/28/2022 Lab Requisition [facility] - Pathology Lab [address] [place] [address] Ramirez Francis MD [address] [address] Localized swelling, mass and lump, right upper limb Social History Tobacco Use Types Packs/Day Years Used Date Smoking Tobacco: Never Assessed Comments Unknown Sex and Gender Information Value Date Recorded Sex Assigned at Not on file 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 - See interpretation. 10/28/2022 4:26 PM [facility] PATH[facility] LAB at 1626 CDT Flow Cytometry Interpretation Preliminary characterization of the right axillary lymph node specimen demonstrates too few hematopoietic cells for flow cytometric analysis. A cytospin prepared from the flow cytometry specimen is reviewed for director supplier quality purposes. Virtually no cells are present. Flow cytometry is not performed. 10/28/2022 4:26 PM [facility] Flow Cytometry Results Too few hematopoietic cells for flow cytometric analysis. 10/28/2022 4:26 PM [facility] Reason for test Localized swelling, mass and lump, right upper limb 10/28/2022 4:26 PM [facility] Client Specimen ID # [id number] 10/28/2022 4:26 PM [facility] Pathologist Location at [facility] 10/28/2022 4:26 PM [facility] PATH[facility] Disclaimer Test performed at [facility], [address] [place] [address], [id number]. *The established laboratory minimum viability is 70%. [...] complexity clinical testing. 10/28/2022 4:26 PM T [facility] PATHOLOGY LAB Embedded Images 4:26 PM [facility] PATH[facility] Pathology/Cytolo gy AXILLARY LYMPH NODE STRUCTURE / Unknown 10/28/2022 9:10 AM CDT 10/28/2022 3:09 PM CDT Ramirez Francis MD LAB - PATHOLOGY/CYTOLOGY ORDERAB LES Final Result [facility] PATHOLOG[facility] LAB [address] [facility] [place] [address], [facility] [phone] documented in this encounter Visit Diagnoses Diagnosis Localized swelling, mass and lump, right upper limb documented in this encounter
--- OUTSIDE RECORDS SUMMARY | 2025-02-05 14:40 | XMS_ITS | Clinical Summary ---
Author Organization [facility] Address [address] [facility] [place] [address] Care Team Providers Care Brand Recorder Name Role Phone Unavailable Primary Care Provider Unavailabl e Source Comments [facility],non-owned Affiliates and Associated Physician Practices is amultiple site organization consisting of ambulatory clinics and hospital sitesin [place], [place], [place] and [place]. This disclosure is being madepursuant to the Care Everywhere program and may not contain all information available regarding this patient. 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
--- OUTSIDE RECORDS SUMMARY | 2025-02-05 14:40 | XMS_ITS | Clinical Summary ---
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 Name Role Phone Jaya Gibson MD Primary Care Provider + [phone] Allergies Active Allergy Reactions Criticality Noted Date [...] Diagnosed Date Tear of acetabular labrum 02/02/2017 Encounters Date Type Department Care Team Description 02/04/2025 6:56 PM HELP DESK MANAGER - 02/04/2025 10:58 PM [facility] [address] [address] Carlos Buckner DO Dizziness (Primary Dx) Discharge Disposition: Discharge to home or self care 02/04/2025 4:00 PM HELP DESK MANAGER Office Visit [facility] at [address] [address] Aggie Plata PA Dizziness (Primary Dx); Tingling of face from Last 3 Months Family History Medical History Relation Name Comments [...] on file Sexual Orientation Not on file Last Filed Vital Signs Vital Sign Reading Time Taken Comments Blood Pressure 119/79 02/04/2025 10:52 PM HELP DESK MANAGER Pulse 58 02/04/2025 10:52 PM HELP DESK MANAGER Temperature 36.6 C (97.9 F) 02/04/2025 5:42 PM HELP DESK MANAGER Respiratory Rate 16 02/04/2025 10:5 2 PM HELP DESK MANAGER Oxygen Saturation 99% 02/04/2025 10: 52 PM HELP DESK MANAGER Inhaled Oxygen Concentration - - Weight 69.7 kg (153 lb 10.6 oz) 02/04/2025 5:46 PM HELP DESK MANAGER Height 157.5 cm (5' 2) 12/20/2017 9:03 AM CDT Body Mass Index 28.1 12/20/2017 9:03 AM CDT Plan of Treatment Health Maintenance Due Date Last Done Comments Breast Cancer Screening-Mammogram 1969 Cervical Cancer Screening 1969 Colon Cancer Screening-Colonoscopy 1969 Depression Screening 1969 Hepatitis C Screening 1969 DTaP/Tdap/Td Vaccine (1 - Tdap) 01/19/1980 Hepatitis B Screening 1987 Regular Well Visit/Exam 18-64 1987 Zoster Vaccine (1 of 2) 2019 Covid-19 Vaccine (3 - 2024-2 6 season) 2024 06/21/2020, 05/24/2020 Influenza Vaccine (#1) 2024 Pneumococcal vaccine <65 Aged Out No longer eligible based on patient's age to complete this topic Procedures Procedure Name Priority Date/Time Associated Diagnosis Comments TROPONIN T HIGH-SENSITIVITY 2-HOUR Timed 02/04/2025 8:29 PM HELP DESK MANAGER INFLUENZA A/B, RSV, AND COVID-19 PCR STAT 02/04/2025 7:25 PM HELP DESK MANAGER APTT STAT 02/04/2025 6:51 PM HELP DESK MANAGER PROTIME-INR STAT 02/04/2025 6:51 PM HELP DESK MANAGER NH CRITICAL CARE ILL/INJURED PATIENT INIT 30-74 MIN Routine 02/04/2025 6:[address] STROKE PROTOCOL WO CONTRAST Critical/Life-T hreatening 02/04/2025 6:42 PM HELP DESK MANAGER TROPONIN T HIGH-SENSITIVITY SERIES (BASELINE, 2HR, 4HR, 6HR) STAT 02/04/2025 6:17 PM HELP DESK MANAGER EGFR STAT 02/04/2025 6:17 PM HELP DESK MANAGER DIFFERENTIAL AUTO STAT 02/04/2025 6:1 7 PM HELP DESK MANAGER COMPREHENSIVE METABOLIC PANEL STAT 02/04/2025 6:17 PM HELP DESK MANAGER CBC WITH AUTO DIFFERENTIAL STAT 02/04/2025 6:17 PM HELP DESK MANAGER URINALYSIS AND REFLEX TO MICROSCOPIC AND CULTURE STAT 02/04/2025 6:04 PM HELP DESK MANAGER ECG 12-LEAD STAT 02/04/2025 5:55 PM HELP DESK MANAGER from Last 3 Months Results * Troponin T high-sensitivity 2-hour (02/04/2025 8:29 PM HELP DESK MANAGER) Pathologist [facility] [place] Trop T hs <6 <=14 ng/L Comment: Interpretive Data For further hscTnT resources including the diagnostic algorithm and an aid in interpretation, copy and paste this link: https://nrl.testcatalog.org/show/hsTrop Current Interpretive Data last revised 2020. Trop T hs delta 0 ng/L CHETAN Trop T hs interp Insignificant CHETAN Blood 02/04/2025 8:29 PM HELP DESK MANAGER 02/04/2025 8:31 PM HELP DESK MANAGER us Carlos Buckner DO LAB BLOOD ORDERABLES Final Res ult [facility] [address] [facility] Department [place] [address] * Influenza A/B, RSV, and COVID-19 PCR Nasopharyngeal (02/04/2025 7:25 PM HELP DESK MANAGER) [facility] COVID-19 RNA Negative Negative Influenza A RNA Negative Negative [facility] Influenza B RNA Negative Negative [facility] RSV RNA Negative Negative [facility] Comment: Interpretive data: Testing performed by [facility]. This test is performed using the Cepheid Xpert Xpress CoV-2/Flu/RSV plus assay. This is a multiplex, real-time reverse transcriptase PCR assay intended for the qualitative detection of nucleic acid from SARS-CoV-2, influenza A, influenza B, and respiratory syncytial virus. This assay has been cleared by the [place] Food and Drug administration. The performance characteristics have been verified by the [facility]. Results must be considered in the clinical context, and a negative result does not rule out infection. Interpretive Data last revised 2023 Nasopharyngeal 02/04/2025 7: 25 PM HELP DESK MANAGER 02/04/2025 7:28 PM HELP DESK MANAGER Narrative CHETAN - 02/04/2025 8:33 PM HELP DESK MANAGER Is the Patient experiencing symptoms consistent with COVID?->Yes Carlos Buckner DO LAB MICROBIOLOGY - GENERAL ORD ERABLES Final Result Performing Organization Address [facility] Co de Phone Number [address] [address] * aPTT (02/04/2025 6:51 PM HELP DESK MANAGER) aPTT 32 22 - 37 sec Comment: Interpretive data aPTT test has not been evaluated for monitoring heparin therapy. The anti-Xa is the preferred test. Current interpretive data was last revised on 2019. Blood Venous blood specimen / Unknown 02/04/2025 6:51 PM HELP DESK MANAGER 02/04/2025 6:53 PM HELP DESK MANAGER Narrative [facility] - 02/04/2025 7:10 PM HELP DESK MANAGER Potential stroke patient. Carlos Buckner DO LAB BLOOD ORDERABLES Final Res ult Performing Organization Address [facility] Co de Phone Number [facility] [address] [place] [address] * Protime-INR (02/04/2025 6:51 PM HELP DESK MANAGER) PT 12.80 12.00 - 14.60 sec INR 0.95 0.90 - 1.20 CHETAN TORRES Comment: Interpretive data Oral anticoagulant therapeutic ranges: Venous thromboembolism prophylaxis or treatment: 2.0-3.0 CARDIOLOGY Standard range: 2.0-3.0 High-intensity range: 2.5-3.5 Refer to indication-specific guidelines for appropriate target ranges for prosthetic heart valve replacement. Current interpretive data was last revised on 2019. Blood 02/04/2025 6:51 PM HELP DESK MANAGER 02/04/2025 6:53 PM HELP DESK MANAGER Carlos Buckner DO LAB BLOOD ORDERABLES Final Res ult [facility] [address] [facility] Department [place] [address] * [place] CRITICAL CARE ILL/INJURED PATIENT INIT 30-74 MIN (02/04/2025 6:45 PM HELP DESK MANAGER) Narrative Carlos Buckner DO - 02/04/2025 6:45 PM HELP DESK MANAGER Carlos Buckner DO 02/04/2025 10:40 PM Critical [...] spent time documenting in the medical record. Carlos Buckner DO IN CLINIC/BEDSIDE ORDERABLES F inal Result * CT Stroke Head WO Contrast (02/04/2025 6:42 PM HELP DESK MANAGER) Anatomical Region Laterality Modality Head N/A Computed Tomogra phy 02/04/2025 6:53 PM HELP DESK MANAGER Impressions 02/04/2025 6:53 PM HELP DESK MANAGER No acute intracranial abnormality. Findings relayed to referring clinician at the time of this dictation by radiology director decision support. Electronically signed by: Maria De Jesus Carlisle M.D. Narrative 02/04/2025 6:53 PM HELP DESK MANAGER EXAMINATION: CT STROKE HEAD WO CONTRAST HISTORY: [...] the time of this dictation by radiology director decision support. Electronically signed by: Maria De Jesus Carlisle M.D. Carlos Buckner DO IMG CT PROCEDURES Final Result * Troponin T high-sensitivity series (baseline, 2hr, 4hr, 6hr) (02/04/2025 6:17 PM HELP DESK MANAGER) Trop T hs <6 <=14 ng/L Comment: Interpretive Data For further hscTnT resources including the diagnostic algorithm and an aid in interpretation, copy and paste this link: https://nrl.testcatalog.org/show/hsTrop Current Interpretive Data last revised 2020. Blood 02/04/2025 6:17 PM HELP DESK MANAGER 02/04/2025 6:22 PM HELP DESK MANAGER Carlos Buckner DO LAB BLOOD ORDERABLES Final Res ult [facility] [address] [facility] Department [place] [address] * eGFR (02/04/2025 6:17 PM HELP DESK MANAGER) eGFR 68 >=60 mL/min/1. 73 m2 Comment: [...] last reviewed 2021. Blood 02/04/2025 6:17 PM HELP DESK MANAGER 02/04/2025 6:22 PM HELP DESK MANAGER us Carlos Buckner DO LAB BLOOD ORDERABLES Final Res ult [facility] [address] [facility] Department [place] [address] * (ABNORMAL) Differential, auto (02/04/2025 6:17 PM HELP DESK MANAGER) Pathologist [facility] Neutrophil abs 5.20 1.50 - 6.50 K/cumm Imm gran abs 0.02 0.00 - 0.10 K/cumm [facility] Lymphocyte abs 2.09 0.80 - 3.30 K/cumm [facility] Monocyte abs 0.65 0.20 - 0.80 K/cumm [facility] Eosinophil abs 0.19 0.00 - 0.50 K/cumm [facility] Basophil abs 0.11(H) 0.00 - 0.10 K/cumm [facility] Neutrophil pct 63.0 % [facility] Comment: Interpretive Data Percent cell count reference ranges are not reported, since discordance with absolute values may lead to misinterpretation of CBC data. Current Interpretive Data was last revised on 2017. Imm gran pct 0.2 % [facility] Comment: Interpretive Data Percent cell count reference ranges are not reported, since discordance with absolute values may lead to misinterpretation of CBC data. Current Interpretive Data was last revised on 2017. Lymphocyte pct 25.3 % [facility] Comment: Interpretive Data Percent cell count reference ranges are not reported, since discordance with absolute values may lead to misinterpretation of CBC data. Current Interpretive Data was last revised on 2017. Monocyte pct 7.9 % [facility] Comment: Interpretive Data Percent cell count reference ranges are not reported, since discordance with absolute values may lead to misinterpretation of CBC data. Current Interpretive Data was last revised on 2017. Eosinophil pct 2.3 % [facility] Comment: Interpretive Data Percent cell count reference ranges are not reported, since discordance with absolute values may lead to misinterpretation of CBC data. Current Interpretive Data was last revised on 2017. Basophil pct 1.3 % [facility] Comment: Interpretive Data Percent cell count reference ranges are not reported, since discordance with absolute values may lead to misinterpretation of CBC data. Current Interpretive Data was last revised on 2017. Blood 02/04/2025 6:17 PM HELP DESK MANAGER 02/04/2025 6:22 PM HELP DESK MANAGER Carlos Buckner DO LAB BLOOD ORDERABLES Final Res ult Performing Organization Address [facility] Co de Phone Number [address] [place] [address] * CBC with auto differential (02/04/2025 6:17 PM HELP DESK MANAGER) Pathologist [facility] WBC 8.26 3.80 - 9.90 K/cumm Hgb 13.8 11.9 - 15.5 g/dL [facility] Hct 40.7 35.6 - 45.5 % [facility] Plt 345 150 - 400 K/cumm [facility] MPV 9.2 9.1 - 12.3 fL [facility] RBC 4.62 3.90 - 5.20 M/cumm [facility] MCV 88.1 81.3 - 96.4 fL [facility] MCH 29.9 27.1 - 33.3 pg [facility] MCHC 33.9 32.3 - 35.7 g/dL [facility] RDW CV 13.1 11.1 - 14.9 % [facility] RDW SD 42.0 35.7 - 48.1 fL [facility] NRBC abs 0.00 0.00 - 0.01 K/cumm [facility] Blood 02/04/2025 6:17 PM HELP DESK MANAGER 02/04/2025 6:22 PM HELP DESK MANAGER Carlos Buckner DO LAB BLOOD ORDERABLES Final Res ult Performing Organization Address [facility] Co de Phone Number [address] [place] [address] * Comprehensive metabolic panel (02/04/2025 6:17 PM HELP DESK MANAGER) Pathologist [facility] Sodium 141 135 - 145 mmol/L Potassium, pl 3.9 3.3 - 4.9 mmol/L [facility] Chloride 104 97 - 110 mmol/L [facility] CO2 27 22 - 32 mmol/L [facility] Anion gap 10 2 - 15 mmol/L [facility] BUN 16 6 - 25 mg/dL [facility] Creatinine 0.98 0.60 - 1.10 mg/dL [facility] Glucose 99 70 - 199 mg/dL [facility] Comment: Interpretive Data Fasting glucose >/= 126 [...] 2022. Calcium 9.4 8.5 - 10.3 mg/dL [facility] Bilirubin, total 0.3 0.1 - 1.2 mg/dL [facility] Protein, pl 7.0 6.5 - 8.5 g/dL [facility] Albumin 4.6 3.5 - 5.0 g/dL [facility] Alk phos 63 40 - 130 Units/L [facility] ALT 14 7 - 45 Units/L [facility] AST 15 10 - 45 Units/L [facility] Blood 02/04/2025 6:17 PM HELP DESK MANAGER 02/04/2025 6:22 PM HELP DESK MANAGER us Carlos Buckner DO LAB BLOOD ORDERABLES Final Res ult [facility] [address] [facility] Department [place] [address] * Urinalysis reflex to microscopic and culture Urine (02/04/2025 6:04 PM HELP DESK MANAGER) Color, ur Yellow Yellow Clarity, ur Clear Clear [facility] Specific gravity, ur 1.016 1.003 - 1.030 [facility] pH, urine 6.5 [facility] Comment: Interpretive Data U rine pH is affected by diet, medications, systemic acid-base disturbances, and renal tubular function. pH may affect urinary stone formation. For example, urine pH below 6.0 may help reduce the tendency for calcium phosphate stones and pH greater than 6.0 may reduce the tendency for uric acid stone formation. Source: [facility] Current Interpretive Data was last revised on 2017 Protein, ur ql Negative Negative [facility] Glucose, ur ql Negative Negative [facility] Ketones, ur Negative Negative [facility] Bilirubin, ur Negative Negative [facility] Blood, ur Negative Negative [facility] Urobilinogen, ur <2.0 <2.0 mg/dL [facility] Nitrite, ur Negative Negative [facility] Leukocyte esterase, ur Negative Negative [facility] UA reflex comment Reflex conditions for microscopic UA and culture not met. CHETAN Urine 02/04/2025 6:04 PM HELP DESK MANAGER 02/04/2025 6:07 PM HELP DESK MANAGER Carlos Buckner DO LAB MICROBIOLOGY - GENERAL ORD ERABLES Final Result [facility] [address] [facility] Department of Laboratories [place], [place] [id number] * ECG 12 lead (02/04/2025 5:55 PM HELP DESK MANAGER) Ventricular Rate EKG/Min 68 BPM [facility] Atrial Rate 68 BPM [facility] NH-Interval (MSEC) 168 ms [facility] QRS-Interval (MSEC) 92 ms [facility] QT-Interval (MSEC) 374 ms [facility] QTc 397 ms [facility] P [place] 30 degrees [facility] R [place] 37 degrees [facility] T [place] 35 degrees [facility] Diagnosis Normal sinus rhythm with sinus arrhythmia Normal ECG No previous ECGs available Confirmed by SULTAN GRADY M.D. ([id number]) on 02/04/2025 11:18:07 PM [facility] 02/04/2025 5:55 PM HELP DESK MANAGER 02/04/2025 11:18 PM HELP DESK MANAGER Carlos Buckner DO ECG ORDERABLES Final Result [facility] from Last 3 [place] [phone] [place] [address] [employer] [facility] Care Teams Gas Substation Operator Relationship Specialty Start Date End Date Jaya Gibson MD PCP - General 01/21/17
--- OUTSIDE RECORDS SUMMARY | 2025-02-05 14:40 | XMS_ITS | Encounter Summary ---
Author Organization [facility] Health Address [address] [facility] [place] [address] Care Team Providers Care Armoured Car Escort Name Role Phone Unavailable Primary Care Provider Unavailabl e Encounter Details Date Type Department Care Team (Late st Contact Info) Description 10/29/2022 Lab Requisition [facility] - Pathology Lab [address] [place] [address] Ramirez Francis MD [address] [address] Illness, unspecified Social History Tobacco Use Types Packs/Day Years Used Date Smoking Tobacco: Never Assessed Comments Unknown Sex and Gender Information Value Date Recorded Sex Assigned at Not on file 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 Gender Identity Not on file Sexual Orientation Not on file documented as of this encounter Plan of Treatment Not on file documented as of this encounter Procedures Procedure Name Priority Date/Time Associated Diagnosis Comments PATHOLOGY TISSUE Routine 10/28/2022 9:10 AM CDT Illness, unspecified documented in this encounter Results * PATHOLOGY TISSUE (10/28/2022 9:10 AM CDT) Case Report Surgical Pathology Report Case: [id number] Authorizing Provider: Ramirez Francis MD Collected: 10/28/2022 09:10 AM Ordering Location: [facility] Care Pathology Lab Received: 10/29/2022 02:45 PM Pathologist: Liliana Bergman MD Specimen: Lymph Node Biopsy, right axilla 11/01/2022 11:17 AM CDT [facility] PATH[facility]Y LAB Final Diagnosis Soft tissue, right axilla, core biopsy (OSC: [id number]; 10/28/2022): - Atypical vascular lesion, see comment 11/01/2022 11:17 AM [facility] PATHOLOGY LAB at 1117 CDT Microscopic Description [...] recommended for definitive classification. 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 11/01/2022 11:17 AM [facility] PATHOLOGY LAB Materials Received Received are 5 slide(s), and 1 block (A1) labeled [id number] along with a copy of the outside pathology report. The materials originate from [facility], [address] [place] [address]. All original materials are returned to the referring institution, along with a copy of our final report. 11/01/2022 11:17 AM [facility] PATHOLOGY LAB Pathologist Location at [facility] 11/01/2022 11:17 AM [facility] PATHOLOGY LAB Disclaimer The performance characteristics of all immunohistochemical and indirect immunofluorescence stains (if any) cited in this report were determined by the Histopathology Laboratory of [facility]. Some of these tests were [...] attending (teaching) pathologist. 11/01/2022 11:17 AM CDT [facility] PATHOLOGY LAB Embedded Images 11/01/2022 11:17 AM CDT [facility] PATHOLOGY LAB Pathology/Cytolo gy BIOPSY OF LYMPH NODE / Unknown 10/28/2022 9:10 AM CDT 10/29/2022 2:45 PM CDT us Ramirez Francis MD LAB - PATHOLOGY/CYTOLOGY ORDERAB LES Final Result [facility] PATHOLOGY LAB [address] [phone] documented in this encounter Visit Diagnoses Diagnosis Illness, unspecified documented in this encounter
== END 2025-02-05 14:37 | disposition home or self-care (01) ==
PROVIDERS: PCP Physician Assistant Medical; Visit Provider Plastic Surgery
DX: M19.041 Primary osteoarthritis, right hand (principal); M19.042 Primary osteoarthritis, left hand
CPT/HCPCS: 73130

== ENCOUNTER 2025-02-07 09:11 | Outpatient (CLI) | payer BC, SELFPAY ==
--- NOTE | ~2025-02-07 | XR_ITS ---
[id number] Indication: M54.2 - Cervicalgia Comparison: None Findings: Grade 1 retrolisthesis of C4 on C5, no fracture. Moderate loss of disc height at C5-6 and C6-7. Soft tissues unremarkable Impression: No acute abnormality. Reviewed, dictated and finalized at location P. BUYER Impression: No acute abnormality.
== END 2025-02-07 09:12 | disposition home or self-care (01) ==
LOC: MICIMG 09:12
PROVIDERS: PCP Family Medicine; Visit Provider Nurse Practitioner Family
DX: M43.12 Spondylolisthesis, cervical region (principal); R29.890 Loss of height; M54.2 Cervicalgia
CPT/HCPCS: 72040